=== PATIENT | male | born 1985 | race Caucasian/White ===

== ENCOUNTER 2017-07-09 11:15 | Emergency (ER) | payer MEDICARE, MEDICAID ==
[~2017-07-09] VITALS: Ht 154.9 cm; Wt 39.5 kg
[~2017-07-09 11:15] MED LIST: ACET160S GT; CARB15DR91 EACH EAR; CHOL100010 GT; CHOL2000 GT; CHOL400T32 PO; CLON-527 GT; CYAN10006 IM; CYAN100061 IM; FERR325T28 GT; FERR325T39 GT; HYDR-3686 PO; HYDR-569 GT; IMODIUM A-D GT; KETO15CR2 TP; LORA1TAB GT; LUBRIDERM LOTION; LUTE6CAP GT; LUTEIN GT; MAGN800O PO; METAMUCIL POWDER GT; OMEP10SU2 GT; OMEP20CA4 GT; POLY17PO10 PO; PROBIOTIC GT; RANI-327 GT; RANI150T8 GT; RISP1TAB3 GT; RISP1TAB47 GT; SIMETHICONE GT; VITAMIN C GT; VITC500T GT; ZINC OXIDE TOP; [UNRECOGNIZED DRUG - CODE] GT
[2017-07-09] MEDS ORDERED: normal saline 1000ML IV soln IV ONE (11:20)
[2017-07-09 11:54] LABS: BASOPHILS % (AUTO) 0.2 % (0-1); EOSINOPHILS # (AUTO) 0.1 X10'3 (0-0.9); EOSINOPHILS % (AUTO) 2.4 % (0-6); HEMATOCRIT 34.6 % (42.0-52.0); HEMOGLOBIN 11.6 g/dl (14.0-17.9); LYMPHOCYTES % (AUTO) 35.7 % (21-51); MEAN CORPUSCULAR HEMOGLOBIN 26.3 PG (27.0-31.0); MEAN CORPUSCULAR HGB CONC 33.5 % (33.0-36.5); MEAN CORPUSCULAR VOLUME 78.4 FL (78-98); MEAN PLATELET VOLUME 6.3 FL (7.4-10.4); MONOCYTES # (AUTO) 0.5 X10'3 (0-0.9); MONOCYTES % (AUTO) 9.3 % (2-12); NEUTROPHILS % (AUTO) 52.4 % (42-75); PLATELET COUNT 372 X10'3 (140-440); RED BLOOD COUNT 4.42 X10'6 (4.70-6.10); RED CELL DISTRIBUTION WIDTH 14.1 % (11.5-14.5); WHITE BLOOD COUNT 5.7 X10'3 (4.5-11.0)
[2017-07-09 12:03] LABS: PROTHROMBIN TIME 10.4 SECONDS (9.0-12.0)
[2017-07-09 12:10] LABS: ALANINE AMINOTRANSFERASE 16 U/L (12-78); ALBUMIN 2.6 G/DL (3.4-5.0); ALBUMIN/GLOBULIN RATIO 0.6 (1.1-1.5); ALKALINE PHOSPHATASE 42 IU/L (46-116); ANION GAP 9 (8-16); ASPARTATE AMINO TRANSFERASE 14 U/L (10-37); BILIRUBIN,TOTAL 0.4 MG/DL (0.1-1.0); BLOOD UREA NITROGEN 12 MG/DL (7-18); BUN/CREATININE RATIO 24.5 (5.4-32.0); CALCIUM 8.4 MG/DL (8.5-10.1); CHLORIDE 107 MMOL/L (99-107); CREATININE 0.49 MG/DL (0.60-1.10); GLUCOSE 89 MG/DL (70-104); MAGNESIUM 2.2 MG/DL (1.5-2.4); POTASSIUM 3.7 MMOL/L (3.5-5.1); SODIUM 142 MMOL/L (135-145); TOTAL PROTEIN 6.7 G/DL (6.4-8.2); eGFR > 90 ML/MIN
[2017-07-09] MEDS ORDERED: MUPI22OI30 TOP (12:42)
[2017-07-09] MEDS ORDERED: ALB0.5UD IH (12:42)
[2017-07-09 13:01] VITALS: BP 116/77
== END 2017-07-09 13:03 | disposition home or self-care (01) ==
LOC: ER 11:16
DX: J40 Bronchitis, not specified as acute or chronic (principal); L01.00 Impetigo, unspecified; Z93.1 Gastrostomy status; Z98.890 Other specified postprocedural states
CPT/HCPCS: 36415; 71045; 80053; 83735; 84145; 85025; 85610; 87502; 87503; 99285; J7030

== ENCOUNTER 2018-09-28 19:23 | Emergency (ER) | payer MEDICARE, MEDICAID ==
[~2018-09-28] VITALS: Ht 154.9 cm; Wt 50.0 kg
[~2018-09-28 19:23] MED LIST changes: +HYDR-4383 GT; -HYDR-569 GT
[2018-09-28 19:41] VITALS: BP 106/60
[2018-09-28] MEDS ORDERED: CIPR7.5D OT (20:40)
== END 2018-09-28 20:53 | disposition home or self-care (01) ==
LOC: ER 19:24
DX: H60.93 Unspecified otitis externa, bilateral (principal); Z88.8 Allergy status to other drugs, medicaments and biological substances
CPT/HCPCS: 99283

== ENCOUNTER 2018-12-28 12:31 | Emergency (ER) | payer MEDICARE, MEDICAID ==
[~2018-12-28] VITALS: Ht 144.8 cm; Wt 34.2 kg
[~2018-12-28 12:31] MED LIST changes: +CIPR7.5D OT
[2018-12-28 12:41] VITALS: BP 94/51
--- NOTE | 2018-12-28 12:49 | NUR ---
PATIENT PULLED OUT CHATO BARRETO G-TUBE AND WAS REINSERTED PER NURSE. SITE UNREMARKABLE. BALLOON INFLATED WITH 5 CC SALINE AND PATIENT TOLERATED PROCEDURE WELL.
== END 2018-12-28 12:55 | disposition home or self-care (01) ==
LOC: ER 12:32
DX: K94.23 Gastrostomy malfunction (principal); Z88.8 Allergy status to other drugs, medicaments and biological substances; Z79.2 Long term (current) use of antibiotics; Z79.899 Other long term (current) drug therapy; Z98.890 Other specified postprocedural states
CPT/HCPCS: 43762; 99283; 99284

== ENCOUNTER 2023-06-05 16:37 | Inpatient (IN) | payer MEDICARE, MEDICAID ==
[~2023-06-05] VITALS: Ht 152.4 cm; Wt 27.3 kg
[~2023-06-05 16:37] MED LIST changes: +MAGN24002 PO; -MAGN800O PO; +RISP-31 GT; -RISP1TAB3 GT
[2023-06-05 18:11] LABS: BASOPHILS % (AUTO) 0.2 % (0-1); EOSINOPHILS % (AUTO) 0.1 % (0-6); HEMATOCRIT 29.6 % (42.0-52.0); HEMOGLOBIN 9.6 g/dl (14.0-17.9); LYMPHOCYTES # (AUTO) 1.7 X10'3 (1.1-4.8); LYMPHOCYTES % (AUTO) 7.1 % (21-51); MEAN CORPUSCULAR HEMOGLOBIN 25.9 PG (27.0-31.0); MEAN CORPUSCULAR HGB CONC 32.3 g/dL (33.0-36.5); MEAN CORPUSCULAR VOLUME 80.2 FL (78-98); MEAN PLATELET VOLUME 7.3 FL (7.4-10.4); MONOCYTES # (AUTO) 1.3 X10'3 (0-0.9); MONOCYTES % (AUTO) 5.3 % (2-12); NEUTROPHILS # (AUTO) 20.9 X10'3 (1.8-7.7); NEUTROPHILS % (AUTO) 87.3 % (42-75); PLATELET COUNT 612 X10'3 (140-440); RED BLOOD COUNT 3.69 X10'6 (4.70-6.10); RED CELL DISTRIBUTION WIDTH 13.7 % (11.5-14.5); WHITE BLOOD COUNT 23.9 X10'3 (4.5-11.0)
[2023-06-05 18:19] LABS: ALANINE AMINOTRANSFERASE 58 U/L (12-78); ALBUMIN 1.7 G/DL (3.4-5.0); ALBUMIN/GLOBULIN RATIO 0.3 (1.1-1.5); ALKALINE PHOSPHATASE 156 IU/L (46-116); ANION GAP 10 (8-16); ASPARTATE AMINO TRANSFERASE 59 U/L (10-37); BILIRUBIN,TOTAL 0.4 MG/DL (0.1-1.0); BLOOD UREA NITROGEN 15 MG/DL (7-18); BUN/CREATININE RATIO 26.3 (10.0-20.0); CALCIUM 8.8 MG/DL (8.5-10.1); CHLORIDE 101 MMOL/L (99-107); CREATININE 0.57 MG/DL (0.60-1.10); GLUCOSE 127 MG/DL (70-104); MAGNESIUM 2.3 MG/DL (1.5-2.4); POTASSIUM 4.3 MMOL/L (3.5-5.1); SODIUM 138 MMOL/L (135-145); TOTAL CARBON DIOXIDE 27.5 MMOL/L (24-32); TOTAL PROTEIN 8.1 G/DL (6.4-8.2); eCRCL 74 ML/MIN; eGFR > 90 ML/MIN
[2023-06-05] MEDS ORDERED: CefTRIAXone 2gm/D5W 50ml BAG 50 ML IV ONE (21:25)
[2023-06-05] MEDS ORDERED: azithromycin/NS 500mg/250ml 250 ML IV ONE (21:40)
[2023-06-05] MEDS ORDERED: normal saline 1000ml 1,000 ML IV ONE (22:15)
[2023-06-05] MEDS ORDERED: mag hydrox/Alum hydrox/simeth 30ml oral suspension PO PRN (23:45)
[2023-06-05] MEDS ORDERED: magnesium 4gm in 100ml NS 100 ML IV PRN (23:45)
[2023-06-05] MEDS ORDERED: potassium Cl 40MEQ/1/2NS 520ml 520 ML IV PRN (23:45)
[2023-06-05] MEDS ORDERED: magnesium 2GM in 50ml NS 50 ML IV PRN (23:45)
[2023-06-05] MEDS ORDERED: magnesium hydroxide 30ml (MOM) UD suspension PO PRN (23:45)
[2023-06-06] MEDS ORDERED: vancomycin/NS 1 GM ADD-VANTAGE 250 ML X 1 DOSE IV ONE ×2 (00:10→00:25)
[2023-06-06] MEDS ORDERED: VANCOMYCIN 750MG IV in NS 250 ML IV ONE (00:30)
[2023-06-06] MEDS ORDERED: VANCOMYCIN TROUGH INJ ONE (01:00)
[2023-06-06] MEDS: docusate sod 100mg capsule PO SCH ×2 (08:00→20:00)
[2023-06-06] MEDS: K and/or MAG REPLACEMENT MC SCH ×2 (08:00→20:00)
[2023-06-06] MEDS ORDERED: azithromycin 250mg tablet PO SCH (08:20)
[2023-06-06] MEDS: normal saline 1000ml 1,000 ML IV SCH ×2 (08:22)
[2023-06-06 08:59] LABS: BASOPHILS % (AUTO) 0.1 % (0-1); EOSINOPHILS % (AUTO) 0 % (0-6); HEMATOCRIT 26.7 % (42.0-52.0); HEMOGLOBIN 8.5 g/dl (14.0-17.9); LYMPHOCYTES # (AUTO) 1.2 X10'3 (1.1-4.8); LYMPHOCYTES % (AUTO) 5.7 % (21-51); MEAN CORPUSCULAR HEMOGLOBIN 25.8 PG (27.0-31.0); MEAN CORPUSCULAR HGB CONC 31.6 g/dL (33.0-36.5); MEAN CORPUSCULAR VOLUME 81.6 FL (78-98); MEAN PLATELET VOLUME 7.4 FL (7.4-10.4); MONOCYTES # (AUTO) 1.4 X10'3 (0-0.9); MONOCYTES % (AUTO) 6.4 % (2-12); NEUTROPHILS % (AUTO) 87.8 % (42-75); PLATELET COUNT 529 X10'3 (140-440); RED BLOOD COUNT 3.28 X10'6 (4.70-6.10); RED CELL DISTRIBUTION WIDTH 13.6 % (11.5-14.5); WHITE BLOOD COUNT 21.7 X10'3 (4.5-11.0)
[2023-06-06] MEDS: heparin, porcine 5000 units/ml vial SQ SCH ×2 (09:35→21:46)
[2023-06-06 09:38] LABS: ALANINE AMINOTRANSFERASE 46 U/L (12-78); ALBUMIN 1.4 G/DL (3.4-5.0); ALBUMIN/GLOBULIN RATIO 0.3 (1.1-1.5); ALKALINE PHOSPHATASE 134 IU/L (46-116); ANION GAP 9 (8-16); BILIRUBIN,TOTAL 0.4 MG/DL (0.1-1.0); BLOOD UREA NITROGEN 11 MG/DL (7-18); BUN/CREATININE RATIO 26.2 (10.0-20.0); CALCIUM 8.4 MG/DL (8.5-10.1); CHLORIDE 106 MMOL/L (99-107); CREATININE 0.42 MG/DL (0.60-1.10); GLUCOSE 106 MG/DL (70-104); MAGNESIUM 2.4 MG/DL (1.5-2.4); SODIUM 140 MMOL/L (135-145); TOTAL CARBON DIOXIDE 24.6 MMOL/L (24-32); TOTAL PROTEIN 6.9 G/DL (6.4-8.2); eCRCL 101 ML/MIN; eGFR > 90 ML/MIN
[2023-06-06 09:41] LABS: ASPARTATE AMINO TRANSFERASE 45 U/L (10-37); POTASSIUM 4.9 MMOL/L (3.5-5.1)
[2023-06-06 09:49] LABS: PLATELET ESTIMATE INCREASED; TOTAL CELLS COUNTED 100
[2023-06-06 15:00] VITALS: BP 111/76; PULSE 101; RESP 18; RESP 19; TEMP 98.7; O2SAT 95; O2SAT 96
[2023-06-06] MEDS: vancomycin/NS 1 GM ADD-VANTAGE 250 ML IV SCH (15:42)
[2023-06-06] MEDS ORDERED: docusate sodium 100mg/10ml UD cup PO PRN (17:10)
[2023-06-06 18:00] VITALS: BP 117/72; PULSE 104; RESP 24; TEMP 98.4; O2SAT 96
[2023-06-06] MEDS: piperacillin/tazo 3.375gm/50ml 50 ML IV SCH (18:24)
[2023-06-06 20:00] VITALS: RESP 16; O2SAT 93
[2023-06-06] MEDS ORDERED: RISP-31 GT (20:36)
[2023-06-06] MEDS ORDERED: MELA1TAB28 GT (20:36)
[2023-06-06] MEDS ORDERED: FAMO20TA8 GT ×2 (20:36→22:04)
[2023-06-06] MEDS ORDERED: CLON-527 GT (20:36)
[2023-06-06] MEDS ORDERED: MELA3TAB70 GT (20:38)
[2023-06-06] MEDS ORDERED: saliva stimulant agent 45ml spray MM PRN (20:50)
[2023-06-06] MEDS ORDERED: CefTRIAXone/D5W-Rocephin 1gm 50 ML IV SCH (21:00)
[2023-06-06] MEDS: clonazePAM 1mg tablet PEG SCH ×2 (21:00→21:45)
[2023-06-06] MEDS: famotidine 20mg tablet PEG SCH (21:45)
[2023-06-06] MEDS: acetaminophen 325mg tablet PO PRN (21:45)
[2023-06-06] MEDS: risperiDONE 2mg tablet PO SCH (21:45)
[2023-06-06 22:00] VITALS: BP 114/79; PULSE 96; RESP 18; TEMP 97.6; O2SAT 93
[2023-06-06] MEDS ORDERED: LOPE1LIQ54 PO (22:04)
[2023-06-06] MEDS ORDERED: RISP0.5T74 GT (22:04)
[2023-06-06] MEDS ORDERED: LOPE1LIQ54 GT ×2 (22:04→22:43)
[2023-06-06] MEDS ORDERED: FER300L GT (22:04)
[2023-06-06] MEDS ORDERED: [UNRECOGNIZED DRUG - CODE] GT (22:04)
[2023-06-06] MEDS ORDERED: RISP2TAB97 GT (22:04)
[2023-06-06] MEDS ORDERED: DEXL30CA3 GT (22:04)
[2023-06-06] MEDS ORDERED: OLAN5TAB29 GT (22:04)
[2023-06-06] MEDS ORDERED: OLAN10TA21 GT (22:04)
[2023-06-06] MEDS ORDERED: L.AC300C GT (22:14)
[2023-06-06] MEDS ORDERED: CLON2TAB12 GT (22:14)
[2023-06-06] MEDS ORDERED: MELA3TAB39 GT (22:14)
[2023-06-06] MEDS ORDERED: CLON1TAB95 GT (22:14)
[2023-06-06] MEDS ORDERED: FLUO40CA10 GT (22:14)
[2023-06-06] MEDS ORDERED: HYDR50TA65 GT (22:28)
[2023-06-06] MEDS ORDERED: [UNRECOGNIZED DRUG - CODE] GT (22:42)
[2023-06-06] MEDS ORDERED: ACET325S14 GT ×2 (22:49→22:51)
[2023-06-07] VITALS (7 sets, daily range): BP systolic 98–109; BP diastolic 64–71; PULSE 90–108; RESP 14–20; TEMP 97.4–98.8; O2SAT 90–98
[2023-06-07] MEDS: piperacillin/tazo 3.375gm/50ml 50 ML IV SCH ×4 (01:13→23:39)
[2023-06-07] MEDS: vancomycin/NS 1 GM ADD-VANTAGE 250 ML IV SCH ×2 (03:03→15:13)
[2023-06-07 06:26] LABS: BASOPHILS % (AUTO) 0.1 % (0-1); EOSINOPHILS # (AUTO) 0.1 X10'3 (0-0.9); EOSINOPHILS % (AUTO) 0.3 % (0-6); HEMATOCRIT 24.1 % (42.0-52.0); HEMOGLOBIN 7.4 g/dl (14.0-17.9); LYMPHOCYTES # (AUTO) 1.4 X10'3 (1.1-4.8); LYMPHOCYTES % (AUTO) 7.1 % (21-51); MEAN CORPUSCULAR HEMOGLOBIN 25.1 PG (27.0-31.0); MEAN CORPUSCULAR HGB CONC 30.6 g/dL (33.0-36.5); MEAN CORPUSCULAR VOLUME 81.8 FL (78-98); MEAN PLATELET VOLUME 7.2 FL (7.4-10.4); MONOCYTES # (AUTO) 1.6 X10'3 (0-0.9); MONOCYTES % (AUTO) 8.2 % (2-12); NEUTROPHILS # (AUTO) 16.7 X10'3 (1.8-7.7); NEUTROPHILS % (AUTO) 84.3 % (42-75); PLATELET COUNT 492 X10'3 (140-440); RED BLOOD COUNT 2.94 X10'6 (4.70-6.10); RED CELL DISTRIBUTION WIDTH 13.8 % (11.5-14.5); WHITE BLOOD COUNT 19.9 X10'3 (4.5-11.0)
[2023-06-07 06:56] LABS: ALANINE AMINOTRANSFERASE 32 U/L (12-78); ALBUMIN 1.2 G/DL (3.4-5.0); ALBUMIN/GLOBULIN RATIO 0.3 (1.1-1.5); ALKALINE PHOSPHATASE 103 IU/L (46-116); ANION GAP 7 (8-16); ASPARTATE AMINO TRANSFERASE 19 U/L (10-37); BILIRUBIN,TOTAL 0.3 MG/DL (0.1-1.0); BLOOD UREA NITROGEN 9 MG/DL (7-18); BUN/CREATININE RATIO 18.4 (10.0-20.0); CALCIUM 7.8 MG/DL (8.5-10.1); CHLORIDE 102 MMOL/L (99-107); CREATININE 0.49 MG/DL (0.60-1.10); GLUCOSE 106 MG/DL (70-104); POTASSIUM 3.5 MMOL/L (3.5-5.1); SODIUM 135 MMOL/L (135-145); TOTAL CARBON DIOXIDE 25.9 MMOL/L (24-32); eCRCL 86 ML/MIN; eGFR > 90 ML/MIN
[2023-06-07] MEDS: normal saline 1000ml 1,000 ML IV SCH (07:30)
[2023-06-07] MEDS: docusate sod 100mg capsule PO SCH ×2 (08:00→20:00)
[2023-06-07] MEDS: K and/or MAG REPLACEMENT MC SCH ×2 (08:00→19:44)
[2023-06-07] MEDS: azithromycin/NS 500mg/250ml 250 ML IV SCH (08:42)
[2023-06-07] MEDS: famotidine 20mg tablet PEG SCH ×2 (08:43→21:29)
[2023-06-07] MEDS: heparin, porcine 5000 units/ml vial SQ SCH ×2 (08:43→21:30)
[2023-06-07] MEDS ORDERED: LIDOcaine 1% (10mg/ml) 2ml vial SQ ONE (14:25)
[2023-06-07] MEDS: morphine 2 MG/ML inj. syringe IV PRN (15:16)
[2023-06-07] MEDS: acetaminophen 325mg tablet PO PRN (15:23)
[2023-06-07] MEDS ORDERED: ACETAMINOPHEN 80 MG RC PRN (15:55)
[2023-06-07 16:16] LABS: BFSOURCE OTHER
[2023-06-07 16:25] LABS: ALBUMIN,BODY FLUID 1.1 G/DL; TOTAL PROTEIN,BODY FLUID 4.6 G/DL
[2023-06-07 17:12] LABS: LDH,BODY FLUID 33017 U/L
[2023-06-07 17:17] LABS: GLUCOSE,BODY FLUID 11 MG/DL
[2023-06-07] MEDS: risperiDONE 2mg tablet PO SCH (21:29)
[2023-06-07] MEDS: clonazePAM 1mg tablet PEG SCH (21:29)
[2023-06-08] VITALS (8 sets, daily range): BP systolic 108–122; BP diastolic 69–99; PULSE 84–95; RESP 15–22; TEMP 97–98.7; O2SAT 92–98
[2023-06-08] MEDS ORDERED: VANCOMYCIN LEVEL IV ONE (01:30)
[2023-06-08 02:03] LABS: BASOPHILS % (AUTO) 0.1 % (0-1); EOSINOPHILS # (AUTO) 0.1 X10'3 (0-0.9); EOSINOPHILS % (AUTO) 0.7 % (0-6); HEMATOCRIT 27.5 % (42.0-52.0); HEMOGLOBIN 8.7 g/dl (14.0-17.9); LYMPHOCYTES % (AUTO) 11.6 % (21-51); MEAN CORPUSCULAR HEMOGLOBIN 25.5 PG (27.0-31.0); MEAN CORPUSCULAR HGB CONC 31.7 g/dL (33.0-36.5); MEAN CORPUSCULAR VOLUME 80.4 FL (78-98); MEAN PLATELET VOLUME 6.9 FL (7.4-10.4); MONOCYTES # (AUTO) 1.6 X10'3 (0-0.9); NEUTROPHILS # (AUTO) 13.9 X10'3 (1.8-7.7); NEUTROPHILS % (AUTO) 78.6 % (42-75); PLATELET COUNT 533 X10'3 (140-440); RED BLOOD COUNT 3.42 X10'6 (4.70-6.10); RED CELL DISTRIBUTION WIDTH 13.8 % (11.5-14.5); WHITE BLOOD COUNT 17.7 X10'3 (4.5-11.0)
[2023-06-08] MEDS: vancomycin/NS 1 GM ADD-VANTAGE 250 ML IV SCH (02:14)
[2023-06-08 02:22] LABS: ALANINE AMINOTRANSFERASE 27 U/L (12-78); ALBUMIN 1.2 G/DL (3.4-5.0); ALBUMIN/GLOBULIN RATIO 0.2 (1.1-1.5); ALKALINE PHOSPHATASE 103 IU/L (46-116); ANION GAP 5 (8-16); ASPARTATE AMINO TRANSFERASE 24 U/L (10-37); BILIRUBIN,TOTAL 0.3 MG/DL (0.1-1.0); BLOOD UREA NITROGEN 8 MG/DL (7-18); BUN/CREATININE RATIO 14.8 (10.0-20.0); CALCIUM 7.9 MG/DL (8.5-10.1); CHLORIDE 99 MMOL/L (99-107); CREATININE 0.54 MG/DL (0.60-1.10); GLUCOSE 111 MG/DL (70-104); MAGNESIUM 1.9 MG/DL (1.5-2.4); POTASSIUM 3.6 MMOL/L (3.5-5.1); SODIUM 134 MMOL/L (135-145); TOTAL CARBON DIOXIDE 29.9 MMOL/L (24-32); TOTAL PROTEIN 6.1 G/DL (6.4-8.2); VANCOMYCIN,TROUGH 9.8 ug/mL (10.0-20.0); eCRCL 94 ML/MIN; eGFR > 90 ML/MIN
[2023-06-08] MEDS: normal saline 1000ml 1,000 ML IV SCH ×2 (03:30→14:52)
[2023-06-08] MEDS: morphine 2 MG/ML inj. syringe IV PRN ×3 (05:03→14:50)
[2023-06-08] MEDS: azithromycin/NS 500mg/250ml 250 ML IV SCH (07:59)
[2023-06-08] MEDS: famotidine 20mg tablet PEG SCH ×2 (07:59→22:16)
[2023-06-08] MEDS: piperacillin/tazo 3.375gm/50ml 50 ML IV SCH ×2 (07:59→16:29)
[2023-06-08] MEDS: heparin, porcine 5000 units/ml vial SQ SCH ×2 (07:59→22:18)
[2023-06-08] MEDS: K and/or MAG REPLACEMENT MC SCH ×2 (08:00→20:00)
[2023-06-08] MEDS: docusate sod 100mg capsule PO SCH ×2 (08:00→20:00)
[2023-06-08] MEDS ORDERED: VANCOMYCIN 750MG IV in NS 250 ML IV SCH (10:00)
[2023-06-08] MEDS: clonazePAM 1mg tablet PEG SCH (22:16)
[2023-06-08] MEDS: risperiDONE 2mg tablet PO SCH (22:16)
[2023-06-08] MEDS: albuterol 2.5 MG/3 ML nebule NEB PRN (23:08)
[2023-06-09] VITALS (10 sets, daily range): BP systolic 98–126; BP diastolic 64–83; PULSE 85–102; RESP 16–23; TEMP 97–98.4; O2SAT 93–97
[2023-06-09] MEDS: piperacillin/tazo 3.375gm/50ml 50 ML IV SCH ×4 (00:34→23:56)
[2023-06-09 07:24] LABS: BASOPHILS % (AUTO) 0.1 % (0-1); EOSINOPHILS # (AUTO) 0.1 X10'3 (0-0.9); HEMATOCRIT 27.8 % (42.0-52.0); HEMOGLOBIN 8.7 g/dl (14.0-17.9); LYMPHOCYTES # (AUTO) 2.1 X10'3 (1.1-4.8); LYMPHOCYTES % (AUTO) 15.4 % (21-51); MEAN CORPUSCULAR HEMOGLOBIN 25.5 PG (27.0-31.0); MEAN CORPUSCULAR HGB CONC 31.3 g/dL (33.0-36.5); MEAN CORPUSCULAR VOLUME 81.4 FL (78-98); MEAN PLATELET VOLUME 7.2 FL (7.4-10.4); MONOCYTES # (AUTO) 1.1 X10'3 (0-0.9); MONOCYTES % (AUTO) 8.2 % (2-12); NEUTROPHILS # (AUTO) 10.2 X10'3 (1.8-7.7); NEUTROPHILS % (AUTO) 75.3 % (42-75); PLATELET COUNT 654 X10'3 (140-440); RED BLOOD COUNT 3.42 X10'6 (4.70-6.10); WHITE BLOOD COUNT 13.6 X10'3 (4.5-11.0)
[2023-06-09 07:35] LABS: ALANINE AMINOTRANSFERASE 24 U/L (12-78); ALBUMIN 1.3 G/DL (3.4-5.0); ALBUMIN/GLOBULIN RATIO 0.3 (1.1-1.5); ALKALINE PHOSPHATASE 108 IU/L (46-116); ANION GAP 6 (8-16); ASPARTATE AMINO TRANSFERASE 28 U/L (10-37); BILIRUBIN,TOTAL 0.3 MG/DL (0.1-1.0); BLOOD UREA NITROGEN 8 MG/DL (7-18); BUN/CREATININE RATIO 18.6 (10.0-20.0); CALCIUM 8.2 MG/DL (8.5-10.1); CHLORIDE 102 MMOL/L (99-107); CREATININE 0.43 MG/DL (0.60-1.10); GLUCOSE 102 MG/DL (70-104); MAGNESIUM 2.2 MG/DL (1.5-2.4); POTASSIUM 4.2 MMOL/L (3.5-5.1); PREALBUMIN 11.9 MG/DL (19-36); SODIUM 136 MMOL/L (135-145); TOTAL CARBON DIOXIDE 27.8 MMOL/L (24-32); TOTAL PROTEIN 6.4 G/DL (6.4-8.2); eCRCL 122 ML/MIN; eGFR > 90 ML/MIN
[2023-06-09] MEDS: K and/or MAG REPLACEMENT MC SCH ×2 (08:00→20:00)
[2023-06-09] MEDS: docusate sod 100mg capsule PO SCH ×2 (08:00→20:00)
[2023-06-09 08:12] LABS: ELLIPTOCYTES FEW; PLATELET ESTIMATE INCREASED; POLYCHROMASIA FEW; TEAR DROP CELLS FEW
[2023-06-09] MEDS: heparin, porcine 5000 units/ml vial SQ SCH ×2 (08:51→22:04)
[2023-06-09] MEDS: azithromycin/NS 500mg/250ml 250 ML IV SCH (08:51)
[2023-06-09] MEDS: famotidine 20mg tablet PEG SCH ×2 (08:51→22:04)
[2023-06-09] MEDS ORDERED: VANCOMYCIN LEVEL IV ONE (09:30)
[2023-06-09] MEDS: morphine 2 MG/ML inj. syringe IV PRN ×2 (15:45→22:24)
[2023-06-09] MEDS: normal saline 1000ml 1,000 ML IV SCH ×2 (19:30→23:57)
[2023-06-09] MEDS: albuterol 2.5 MG/3 ML nebule NEB PRN (21:26)
[2023-06-09] MEDS: risperiDONE 2mg tablet PO SCH (22:01)
[2023-06-09] MEDS: clonazePAM 1mg tablet PEG SCH (22:02)
[2023-06-10] VITALS (7 sets, daily range): BP systolic 86–106; BP diastolic 55–69; PULSE 80–94; RESP 16–22; TEMP 97–98.2; O2SAT 92–96
[2023-06-10] MEDS: morphine 2 MG/ML inj. syringe IV PRN ×2 (02:45→10:08)
[2023-06-10 06:28] LABS: EOSINOPHILS # (AUTO) 0.3 X10'3 (0-0.9); EOSINOPHILS % (AUTO) 2.1 % (0-6); HEMOGLOBIN 9.1 g/dl (14.0-17.9); LYMPHOCYTES # (AUTO) 1.5 X10'3 (1.1-4.8); MONOCYTES # (AUTO) 1.1 X10'3 (0-0.9); NEUTROPHILS # (AUTO) 10.7 X10'3 (1.8-7.7); WHITE BLOOD COUNT 13.6 X10'3 (4.5-11.0)
[2023-06-10 06:30] LABS: BASOPHILS % (AUTO) 0.2 % (0-1); HEMATOCRIT 28.9 % (42.0-52.0); LYMPHOCYTES % (AUTO) 10.9 % (21-51); MEAN CORPUSCULAR HEMOGLOBIN 25.7 PG (27.0-31.0); MEAN CORPUSCULAR HGB CONC 31.6 g/dL (33.0-36.5); MEAN CORPUSCULAR VOLUME 81.3 FL (78-98); MEAN PLATELET VOLUME 7.1 FL (7.4-10.4); NEUTROPHILS % (AUTO) 78.8 % (42-75); PLATELET COUNT 722 X10'3 (140-440); RED BLOOD COUNT 3.55 X10'6 (4.70-6.10); RED CELL DISTRIBUTION WIDTH 14.2 % (11.5-14.5)
[2023-06-10 06:32] LABS: ALANINE AMINOTRANSFERASE 23 U/L (12-78); ALBUMIN 1.6 G/DL (3.4-5.0); ALBUMIN/GLOBULIN RATIO 0.3 (1.1-1.5); ALKALINE PHOSPHATASE 124 IU/L (46-116); ANION GAP 7 (8-16); ASPARTATE AMINO TRANSFERASE 30 U/L (10-37); BILIRUBIN,TOTAL 0.2 MG/DL (0.1-1.0); BLOOD UREA NITROGEN 9 MG/DL (7-18); BUN/CREATININE RATIO 17.3 (10.0-20.0); CALCIUM 8.5 MG/DL (8.5-10.1); CHLORIDE 100 MMOL/L (99-107); CREATININE 0.52 MG/DL (0.60-1.10); GLUCOSE 123 MG/DL (70-104); POTASSIUM 4.1 MMOL/L (3.5-5.1); SODIUM 133 MMOL/L (135-145); TOTAL CARBON DIOXIDE 26.5 MMOL/L (24-32); TOTAL PROTEIN 6.9 G/DL (6.4-8.2); eCRCL 88 ML/MIN; eGFR > 90 ML/MIN
[2023-06-10 07:17] LABS: LARGE PLATELETS FEW; PLATELET ESTIMATE INCREASED; TOTAL CELLS COUNTED 100
[2023-06-10 07:18] LABS: POLYCHROMASIA FEW; TEAR DROP CELLS FEW
[2023-06-10] MEDS: docusate sod 100mg capsule PO SCH ×2 (08:00→20:00)
[2023-06-10] MEDS: piperacillin/tazo 3.375gm/50ml 50 ML IV SCH ×3 (09:51→23:40)
[2023-06-10] MEDS: K and/or MAG REPLACEMENT MC SCH ×2 (10:00→20:00)
[2023-06-10] MEDS: famotidine 20mg tablet PEG SCH ×2 (10:21→20:06)
[2023-06-10] MEDS: heparin, porcine 5000 units/ml vial SQ SCH ×2 (10:26→20:06)
[2023-06-10] MEDS ORDERED: diatr meglu/diatrizoate 30ml oral sol.-(3 dose) bottle PO SCH (15:00)
[2023-06-10] MEDS: clonazePAM 1mg tablet PEG SCH (20:06)
[2023-06-10] MEDS: risperiDONE 2mg tablet PO SCH (20:06)
[2023-06-11] VITALS (7 sets, daily range): BP systolic 88–106; BP diastolic 59–68; PULSE 84–104; RESP 18–21; TEMP 97.3–98.9; O2SAT 93–96
[2023-06-11] MEDS: morphine 2 MG/ML inj. syringe IV PRN (01:30)
[2023-06-11] MEDS: piperacillin/tazo 3.375gm/50ml 50 ML IV SCH ×2 (08:00→18:37)
[2023-06-11] MEDS: K and/or MAG REPLACEMENT MC SCH ×2 (08:00→20:00)
[2023-06-11] MEDS: docusate sod 100mg capsule PO SCH ×2 (08:00→20:13)
[2023-06-11] MEDS: famotidine 20mg tablet PEG SCH ×2 (08:00→20:12)
[2023-06-11] MEDS: heparin, porcine 5000 units/ml vial SQ SCH ×2 (08:02→20:13)
[2023-06-11] MEDS: clonazePAM 1mg tablet PEG SCH (20:12)
[2023-06-11] MEDS: risperiDONE 2mg tablet PO SCH (20:12)
[2023-06-12] VITALS (8 sets, daily range): BP systolic 87–98; BP diastolic 51–59; PULSE 79–103; RESP 14–18; TEMP 97.3–98.8; O2SAT 14–96
[2023-06-12] MEDS: piperacillin/tazo 3.375gm/50ml 50 ML IV SCH ×3 (01:00→15:27)
[2023-06-12] MEDS: morphine 2 MG/ML inj. syringe IV PRN (01:47)
[2023-06-12 06:19] LABS: BASOPHILS % (AUTO) 0.2 % (0-1); EOSINOPHILS # (AUTO) 0.3 X10'3 (0-0.9); EOSINOPHILS % (AUTO) 2.5 % (0-6); HEMATOCRIT 32.2 % (42.0-52.0); HEMOGLOBIN 10.4 g/dl (14.0-17.9); LYMPHOCYTES # (AUTO) 1.8 X10'3 (1.1-4.8); LYMPHOCYTES % (AUTO) 15.2 % (21-51); MEAN CORPUSCULAR HEMOGLOBIN 26.2 PG (27.0-31.0); MEAN CORPUSCULAR HGB CONC 32.2 g/dL (33.0-36.5); MEAN CORPUSCULAR VOLUME 81.5 FL (78-98); MEAN PLATELET VOLUME 6.8 FL (7.4-10.4); MONOCYTES # (AUTO) 0.8 X10'3 (0-0.9); MONOCYTES % (AUTO) 6.3 % (2-12); NEUTROPHILS # (AUTO) 9.1 X10'3 (1.8-7.7); NEUTROPHILS % (AUTO) 75.8 % (42-75); PLATELET COUNT 771 X10'3 (140-440); RED BLOOD COUNT 3.95 X10'6 (4.70-6.10); RED CELL DISTRIBUTION WIDTH 14.3 % (11.5-14.5)
[2023-06-12 06:51] LABS: PLATELET ESTIMATE INCREASED; TOTAL CELLS COUNTED 100
[2023-06-12 06:53] LABS: HYPOCHROMASIA 1+; POLYCHROMASIA FEW
[2023-06-12 06:54] LABS: ALBUMIN 2.1 G/DL (3.4-5.0); ANION GAP 8 (8-16); BLOOD UREA NITROGEN 17 MG/DL (7-18); BUN/CREATININE RATIO 37.8 (10.0-20.0); CALCIUM 8.9 MG/DL (8.5-10.1); CHLORIDE 98 MMOL/L (99-107); CREATININE 0.45 MG/DL (0.60-1.10); GLUCOSE 114 MG/DL (70-104); PHOSPHORUS 4.1 MG/DL (2.3-4.5); POTASSIUM 4.3 MMOL/L (3.5-5.1); SODIUM 133 MMOL/L (135-145); TEAR DROP CELLS FEW; TOTAL CARBON DIOXIDE 27.1 MMOL/L (24-32); eCRCL 99 ML/MIN; eGFR > 90 ML/MIN
[2023-06-12 06:55] LABS: LARGE PLATELETS FEW; STOMATOCYTES FEW
[2023-06-12] MEDS: famotidine 20mg tablet PEG SCH ×2 (07:31→20:15)
[2023-06-12] MEDS: heparin, porcine 5000 units/ml vial SQ SCH ×2 (07:31→20:17)
[2023-06-12] MEDS: docusate sod 100mg capsule PO SCH ×2 (07:37→20:18)
[2023-06-12] MEDS: K and/or MAG REPLACEMENT MC SCH ×2 (08:00→20:00)
[2023-06-12] MEDS: risperiDONE 2mg tablet PO SCH (20:15)
[2023-06-12] MEDS: clonazePAM 1mg tablet PEG SCH (20:17)
[2023-06-13] MEDS: piperacillin/tazo 3.375gm/50ml 50 ML IV SCH ×3 (00:48→16:39)
[2023-06-13 06:00] VITALS: BP 105/78; PULSE 94; RESP 14; TEMP 97.5; O2SAT 98
[2023-06-13 08:00] VITALS: RESP 14; O2SAT 92
[2023-06-13] MEDS: K and/or MAG REPLACEMENT MC SCH ×2 (08:00→20:00)
[2023-06-13] MEDS: heparin, porcine 5000 units/ml vial SQ SCH ×2 (08:20→20:56)
[2023-06-13] MEDS: docusate sod 100mg capsule PO SCH (08:21)
[2023-06-13] MEDS: famotidine 20mg tablet PEG SCH ×2 (08:21→20:59)
[2023-06-13 09:48] LABS: BASOPHILS % (AUTO) 0.2 % (0-1); EOSINOPHILS # (AUTO) 0.2 X10'3 (0-0.9); EOSINOPHILS % (AUTO) 1.5 % (0-6); HEMATOCRIT 36.1 % (42.0-52.0); HEMOGLOBIN 11.2 g/dl (14.0-17.9); LYMPHOCYTES # (AUTO) 2.2 X10'3 (1.1-4.8); LYMPHOCYTES % (AUTO) 13.4 % (21-51); MEAN CORPUSCULAR HEMOGLOBIN 26.1 PG (27.0-31.0); MEAN CORPUSCULAR HGB CONC 31.1 g/dL (33.0-36.5); MEAN CORPUSCULAR VOLUME 83.8 FL (78-98); MEAN PLATELET VOLUME 6.7 FL (7.4-10.4); MONOCYTES % (AUTO) 5.9 % (2-12); NEUTROPHILS # (AUTO) 12.9 X10'3 (1.8-7.7); PLATELET COUNT 812 X10'3 (140-440); RED BLOOD COUNT 4.31 X10'6 (4.70-6.10); RED CELL DISTRIBUTION WIDTH 15.1 % (11.5-14.5); WHITE BLOOD COUNT 16.3 X10'3 (4.5-11.0)
[2023-06-13 10:00] VITALS: BP 104/71; PULSE 85; RESP 14; TEMP 97.8; O2SAT 92
[2023-06-13 10:05] LABS: ALBUMIN 2.3 G/DL (3.4-5.0); ANION GAP 8 (8-16); BLOOD UREA NITROGEN 19 MG/DL (7-18); BUN/CREATININE RATIO 36.5 (10.0-20.0); CALCIUM 9.2 MG/DL (8.5-10.1); CHLORIDE 100 MMOL/L (99-107); CREATININE 0.52 MG/DL (0.60-1.10); GLUCOSE 124 MG/DL (70-104); PHOSPHORUS 4.2 MG/DL (2.3-4.5); POTASSIUM 3.8 MMOL/L (3.5-5.1); SODIUM 136 MMOL/L (135-145); TOTAL CARBON DIOXIDE 28.4 MMOL/L (24-32); eCRCL 82 ML/MIN; eGFR > 90 ML/MIN
[2023-06-13 11:51] VITALS: PULSE 90; RESP 20; O2SAT 97
[2023-06-13] MEDS ORDERED: docusate sodium 100mg/10ml UD cup PEG PRN (16:56)
[2023-06-13] MEDS ORDERED: acetaminophen 325mg tablet PEG PRN (16:56)
[2023-06-13] MEDS ORDERED: magnesium hydroxide 30ml (MOM) UD suspension PEG PRN (16:57)
[2023-06-13 20:00] VITALS: RESP 14; O2SAT 92
[2023-06-13] MEDS: clonazePAM 1mg tablet PEG SCH (20:59)
[2023-06-13] MEDS: risperiDONE 2mg tablet PEG SCH (21:00)
[2023-06-13 21:50] VITALS: PULSE 83; RESP 16; O2SAT 97
[2023-06-14] VITALS (8 sets, daily range): BP systolic 95–118; BP diastolic 64–82; PULSE 81–100; RESP 14–24; TEMP 96.1–98.3; O2SAT 92–97
[2023-06-14] MEDS: piperacillin/tazo 3.375gm/50ml 50 ML IV SCH ×3 (01:51→16:13)
[2023-06-14] MEDS: morphine 2 MG/ML inj. syringe IV PRN (03:28)
[2023-06-14 05:33] LABS: BASOPHILS % (AUTO) 0.1 % (0-1); EOSINOPHILS # (AUTO) 0.2 X10'3 (0-0.9); MEAN PLATELET VOLUME 6.7 FL (7.4-10.4); RED BLOOD COUNT 4.08 X10'6 (4.70-6.10)
[2023-06-14 05:34] LABS: EOSINOPHILS % (AUTO) 1.8 % (0-6); HEMATOCRIT 33.6 % (42.0-52.0); HEMOGLOBIN 10.7 g/dl (14.0-17.9); LYMPHOCYTES # (AUTO) 1.6 X10'3 (1.1-4.8); MEAN CORPUSCULAR HEMOGLOBIN 26.2 PG (27.0-31.0); MEAN CORPUSCULAR HGB CONC 31.8 g/dL (33.0-36.5); MEAN CORPUSCULAR VOLUME 82.5 FL (78-98); MONOCYTES # (AUTO) 0.8 X10'3 (0-0.9); MONOCYTES % (AUTO) 5.8 % (2-12); NEUTROPHILS # (AUTO) 10.8 X10'3 (1.8-7.7); NEUTROPHILS % (AUTO) 80.3 % (42-75); PLATELET COUNT 691 X10'3 (140-440); RED CELL DISTRIBUTION WIDTH 14.9 % (11.5-14.5); WHITE BLOOD COUNT 13.4 X10'3 (4.5-11.0)
[2023-06-14 05:55] LABS: ALBUMIN 2.3 G/DL (3.4-5.0); ANION GAP 9 (8-16); BLOOD UREA NITROGEN 20 MG/DL (7-18); BUN/CREATININE RATIO 33.9 (10.0-20.0); CALCIUM 9.2 MG/DL (8.5-10.1); CHLORIDE 99 MMOL/L (99-107); CREATININE 0.59 MG/DL (0.60-1.10); GLUCOSE 115 MG/DL (70-104); PHOSPHORUS 4.4 MG/DL (2.3-4.5); POTASSIUM 4.2 MMOL/L (3.5-5.1); SODIUM 133 MMOL/L (135-145); TOTAL CARBON DIOXIDE 25.4 MMOL/L (24-32); eCRCL 74 ML/MIN; eGFR > 90 ML/MIN
[2023-06-14] MEDS: famotidine 20mg tablet PEG SCH ×2 (08:21→22:24)
[2023-06-14] MEDS: heparin, porcine 5000 units/ml vial SQ SCH ×2 (08:21→22:23)
[2023-06-14] MEDS: K and/or MAG REPLACEMENT MC SCH ×2 (08:50→20:00)
[2023-06-14] MEDS: clonazePAM 1mg tablet PEG SCH (22:24)
[2023-06-14] MEDS: risperiDONE 2mg tablet PEG SCH (22:24)
[2023-06-15] VITALS (8 sets, daily range): BP systolic 96–102; BP diastolic 51–66; PULSE 65–87; RESP 13–16; TEMP 97.6–98.5; O2SAT 96–98
[2023-06-15] MEDS: piperacillin/tazo 3.375gm/50ml 50 ML IV SCH ×3 (00:54→19:25)
[2023-06-15 06:50] LABS: MEAN PLATELET VOLUME 6.8 FL (7.4-10.4); MONOCYTES # (AUTO) 0.8 X10'3 (0-0.9)
[2023-06-15 06:53] LABS: BASOPHILS % (AUTO) 0.3 % (0-1); EOSINOPHILS # (AUTO) 0.2 X10'3 (0-0.9); EOSINOPHILS % (AUTO) 2.1 % (0-6); HEMOGLOBIN 11.1 g/dl (14.0-17.9); LYMPHOCYTES # (AUTO) 1.9 X10'3 (1.1-4.8); LYMPHOCYTES % (AUTO) 16.3 % (21-51); MEAN CORPUSCULAR HEMOGLOBIN 26.8 PG (27.0-31.0); MEAN CORPUSCULAR HGB CONC 32.5 g/dL (33.0-36.5); MEAN CORPUSCULAR VOLUME 82.4 FL (78-98); MONOCYTES % (AUTO) 6.6 % (2-12); NEUTROPHILS # (AUTO) 8.5 X10'3 (1.8-7.7); NEUTROPHILS % (AUTO) 74.7 % (42-75); PLATELET COUNT 633 X10'3 (140-440); RED BLOOD COUNT 4.13 X10'6 (4.70-6.10); RED CELL DISTRIBUTION WIDTH 15.1 % (11.5-14.5); WHITE BLOOD COUNT 11.4 X10'3 (4.5-11.0)
[2023-06-15 07:16] LABS: ALBUMIN 2.5 G/DL (3.4-5.0); ANION GAP 11 (8-16); BLOOD UREA NITROGEN 20 MG/DL (7-18); BUN/CREATININE RATIO 42.6 (10.0-20.0); CHLORIDE 99 MMOL/L (99-107); CREATININE 0.47 MG/DL (0.60-1.10); GLUCOSE 116 MG/DL (70-104); PHOSPHORUS 4.7 MG/DL (2.3-4.5); POTASSIUM 3.8 MMOL/L (3.5-5.1); SODIUM 136 MMOL/L (135-145); TOTAL CARBON DIOXIDE 26.2 MMOL/L (24-32); eCRCL 93 ML/MIN; eGFR > 90 ML/MIN
[2023-06-15] MEDS: K and/or MAG REPLACEMENT MC SCH ×2 (08:00→20:00)
[2023-06-15] MEDS: famotidine 20mg tablet PEG SCH ×2 (10:27→21:55)
[2023-06-15] MEDS: heparin, porcine 5000 units/ml vial SQ SCH ×2 (10:28→21:54)
[2023-06-15] MEDS: risperiDONE 2mg tablet PEG SCH (21:00)
[2023-06-15] MEDS: clonazePAM 1mg tablet PEG SCH (21:00)
[2023-06-15 21:11] LABS: ABG BASE EXCESS 2.4 mmol/L (-2.0-2.0); ABG HCO3 27.5 mmol/L (22.0-26.0); ABG OXYGEN SATURATION 94.7 % (94-97); ABG PCO2 (T) 43.2 mmHg (35.0-48.0); ABG PH (T) 7.419 (7.340-7.440); ABG PO2 (T) 76.4 mmHg (75.0-100.0); ALLEN'S TEST Modified; FCOHb 1.4 % (0.0-3.9); FHHb 5.2 % (0.0-5.0); FMetHb 0.2 % (0.0-1.5); FO2Hb 93.2 % (94-97); MODE ROOM AIR; PATIENT TEMPERATURE 36.2; RESPIRATORY RATE 14 b/min; TOTAL HEMOGLOBIN 11.1 G/dl (14.0-17.9)
[2023-06-15] MEDS ORDERED: LidoCAINE 2% Topical Jelly 11mL syringe TOP ONE (21:15)
[2023-06-15] MEDS ORDERED: ringers solution, lacted 1,000 ML IV ONE (21:20)
[2023-06-16] VITALS (7 sets, daily range): BP systolic 90–98; BP diastolic 56–67; PULSE 75–84; RESP 13–18; TEMP 97.2–97.8; O2SAT 93–99
[2023-06-16] MEDS: piperacillin/tazo 3.375gm/50ml 50 ML IV SCH ×3 (00:50→16:48)
[2023-06-16 06:44] LABS: EOSINOPHILS # (AUTO) 0.3 X10'3 (0-0.9); LYMPHOCYTES # (AUTO) 1.6 X10'3 (1.1-4.8)
[2023-06-16 06:47] LABS: BASOPHILS % (AUTO) 0.4 % (0-1); EOSINOPHILS % (AUTO) 2.3 % (0-6); HEMATOCRIT 34.8 % (42.0-52.0); HEMOGLOBIN 11.3 g/dl (14.0-17.9); LYMPHOCYTES % (AUTO) 15.1 % (21-51); MEAN CORPUSCULAR HGB CONC 32.5 g/dL (33.0-36.5); MEAN CORPUSCULAR VOLUME 83.1 FL (78-98); MONOCYTES # (AUTO) 0.8 X10'3 (0-0.9); MONOCYTES % (AUTO) 7.5 % (2-12); NEUTROPHILS # (AUTO) 8.1 X10'3 (1.8-7.7); NEUTROPHILS % (AUTO) 74.7 % (42-75); PLATELET COUNT 598 X10'3 (140-440); RED BLOOD COUNT 4.19 X10'6 (4.70-6.10); WHITE BLOOD COUNT 10.9 X10'3 (4.5-11.0)
[2023-06-16 06:55] LABS: ALBUMIN 2.5 G/DL (3.4-5.0); ANION GAP 8 (8-16); BLOOD UREA NITROGEN 24 MG/DL (7-18); BUN/CREATININE RATIO 46.2 (10.0-20.0); CALCIUM 9.3 MG/DL (8.5-10.1); CHLORIDE 99 MMOL/L (99-107); CREATININE 0.52 MG/DL (0.60-1.10); GLUCOSE 113 MG/DL (70-104); PHOSPHORUS 4.6 MG/DL (2.3-4.5); SODIUM 134 MMOL/L (135-145); TOTAL CARBON DIOXIDE 27.1 MMOL/L (24-32); eCRCL 84 ML/MIN; eGFR > 90 ML/MIN
[2023-06-16] MEDS: famotidine 20mg tablet PEG SCH ×2 (07:47→21:06)
[2023-06-16] MEDS: K and/or MAG REPLACEMENT MC SCH ×2 (08:00→20:00)
[2023-06-16] MEDS: heparin, porcine 5000 units/ml vial SQ SCH ×2 (08:00→21:07)
[2023-06-16] MEDS: clonazePAM 1mg tablet PEG SCH (21:06)
[2023-06-16] MEDS: risperiDONE 2mg tablet PEG SCH (21:06)
[2023-06-17] MEDS: piperacillin/tazo 3.375gm/50ml 50 ML IV SCH ×3 (00:56→17:30)
[2023-06-17 06:00] VITALS: BP 84/55; PULSE 68; RESP 14; TEMP 97.9; O2SAT 96
[2023-06-17] MEDS: K and/or MAG REPLACEMENT MC SCH ×2 (08:00→20:00)
[2023-06-17] MEDS: famotidine 20mg tablet PEG SCH ×2 (08:00→20:12)
[2023-06-17 08:19] VITALS: PULSE 83; RESP 18; O2SAT 94
[2023-06-17 10:15] LABS: ALANINE AMINOTRANSFERASE 17 U/L (12-78); ALBUMIN 2.7 G/DL (3.4-5.0); ALBUMIN/GLOBULIN RATIO 0.4 (1.1-1.5); ALKALINE PHOSPHATASE 86 IU/L (46-116); ANION GAP 12 (8-16); ASPARTATE AMINO TRANSFERASE 18 U/L (10-37); BILIRUBIN,TOTAL 0.2 MG/DL (0.1-1.0); BLOOD UREA NITROGEN 27 MG/DL (7-18); CALCIUM 9.6 MG/DL (8.5-10.1); CHLORIDE 98 MMOL/L (99-107); GLUCOSE 96 MG/DL (70-104); POTASSIUM 4.2 MMOL/L (3.5-5.1); SODIUM 134 MMOL/L (135-145); TOTAL CARBON DIOXIDE 23.6 MMOL/L (24-32); TOTAL PROTEIN 8.9 G/DL (6.4-8.2); eCRCL 93 ML/MIN; eGFR > 90 ML/MIN
[2023-06-17 10:18] LABS: BASOPHILS # (AUTO) 0.1 X10'3 (0-0.2); BASOPHILS % (AUTO) 0.6 % (0-1); EOSINOPHILS # (AUTO) 0.2 X10'3 (0-0.9); EOSINOPHILS % (AUTO) 1.9 % (0-6); HEMATOCRIT 39.7 % (42.0-52.0); HEMOGLOBIN 12.4 g/dl (14.0-17.9); LYMPHOCYTES # (AUTO) 1.7 X10'3 (1.1-4.8); LYMPHOCYTES % (AUTO) 18.8 % (21-51); MEAN CORPUSCULAR HEMOGLOBIN 26.2 PG (27.0-31.0); MEAN CORPUSCULAR HGB CONC 31.1 g/dL (33.0-36.5); MEAN CORPUSCULAR VOLUME 84.1 FL (78-98); MONOCYTES # (AUTO) 0.6 X10'3 (0-0.9); MONOCYTES % (AUTO) 6.8 % (2-12); NEUTROPHILS # (AUTO) 6.6 X10'3 (1.8-7.7); NEUTROPHILS % (AUTO) 71.9 % (42-75); PLATELET COUNT 559 X10'3 (140-440); RED BLOOD COUNT 4.72 X10'6 (4.70-6.10); RED CELL DISTRIBUTION WIDTH 16.2 % (11.5-14.5); WHITE BLOOD COUNT 9.2 X10'3 (4.5-11.0)
[2023-06-17 11:10] VITALS: BP 93/63; PULSE 91; RESP 20; TEMP 97.3; O2SAT 90
[2023-06-17] MEDS: ondansetron/PF 4mg/2ml inj IV PRN (11:19)
[2023-06-17] MEDS: heparin, porcine 5000 units/ml vial SQ SCH ×2 (11:20→20:12)
[2023-06-17 18:00] VITALS: BP 96/67; PULSE 85; RESP 20; TEMP 97.5; O2SAT 95
[2023-06-17 20:12] VITALS: PULSE 88; RESP 18; O2SAT 93
[2023-06-17] MEDS: clonazePAM 1mg tablet PEG SCH (20:12)
[2023-06-17] MEDS: risperiDONE 2mg tablet PEG SCH (20:12)
[2023-06-17 22:00] VITALS: BP 102/70; PULSE 87; RESP 14; TEMP 98.2; O2SAT 95
[2023-06-18] VITALS (7 sets, daily range): BP systolic 89–126; BP diastolic 57–72; PULSE 61–87; RESP 15–19; TEMP 97.5–98.5; O2SAT 96–98
[2023-06-18] MEDS: piperacillin/tazo 3.375gm/50ml 50 ML IV SCH ×4 (02:39→23:09)
[2023-06-18] MEDS: K and/or MAG REPLACEMENT MC SCH ×2 (08:00→20:00)
[2023-06-18] MEDS: famotidine 20mg tablet PEG SCH ×2 (08:29→20:41)
[2023-06-18] MEDS: heparin, porcine 5000 units/ml vial SQ SCH ×2 (08:29→20:40)
[2023-06-18] MEDS: risperiDONE 2mg tablet PEG SCH (20:40)
[2023-06-18] MEDS: clonazePAM 1mg tablet PEG SCH (20:41)
[2023-06-19] MEDS: ondansetron/PF 4mg/2ml inj IV PRN ×2 (00:31→15:46)
[2023-06-19 06:00] VITALS: BP 99/67; PULSE 89; RESP 12; TEMP 97.1; O2SAT 99
[2023-06-19] MEDS: K and/or MAG REPLACEMENT MC SCH ×2 (08:00→19:28)
[2023-06-19] MEDS: famotidine 20mg tablet PEG SCH ×2 (08:44→19:26)
[2023-06-19] MEDS: piperacillin/tazo 3.375gm/50ml 50 ML IV SCH ×2 (08:44→15:47)
[2023-06-19] MEDS: heparin, porcine 5000 units/ml vial SQ SCH ×2 (08:44→19:28)
[2023-06-19 10:00] VITALS: BP 109/72; PULSE 92; RESP 15; TEMP 98.7; O2SAT 98
[2023-06-19 12:19] LABS: ALANINE AMINOTRANSFERASE 13 U/L (12-78); ALBUMIN 2.7 G/DL (3.4-5.0); ALBUMIN/GLOBULIN RATIO 0.5 (1.1-1.5); ALKALINE PHOSPHATASE 71 IU/L (46-116); ANION GAP 8 (8-16); ASPARTATE AMINO TRANSFERASE 19 U/L (10-37); BASOPHILS # (AUTO) 0.2 X10'3 (0-0.2); BASOPHILS % (AUTO) 1.9 % (0-1); BILIRUBIN,TOTAL 0.3 MG/DL (0.1-1.0); BLOOD UREA NITROGEN 33 MG/DL (7-18); CALCIUM 9.3 MG/DL (8.5-10.1); CHLORIDE 106 MMOL/L (99-107); EOSINOPHILS % (AUTO) 0.3 % (0-6); GLUCOSE 142 MG/DL (70-104); HEMATOCRIT 34.1 % (42.0-52.0); HEMOGLOBIN 11.3 g/dl (14.0-17.9); LYMPHOCYTES # (AUTO) 1.6 X10'3 (1.1-4.8); LYMPHOCYTES % (AUTO) 18.2 % (21-51); MEAN CORPUSCULAR HEMOGLOBIN 27.4 PG (27.0-31.0); MEAN CORPUSCULAR HGB CONC 33.1 g/dL (33.0-36.5); MEAN CORPUSCULAR VOLUME 82.8 FL (78-98); MEAN PLATELET VOLUME 7.3 FL (7.4-10.4); MONOCYTES # (AUTO) 0.5 X10'3 (0-0.9); MONOCYTES % (AUTO) 5.6 % (2-12); NEUTROPHILS # (AUTO) 6.6 X10'3 (1.8-7.7); PLATELET COUNT 496 X10'3 (140-440); POTASSIUM 3.8 MMOL/L (3.5-5.1); RED BLOOD COUNT 4.12 X10'6 (4.70-6.10); RED CELL DISTRIBUTION WIDTH 16.2 % (11.5-14.5); SODIUM 142 MMOL/L (135-145); TOTAL CARBON DIOXIDE 27.8 MMOL/L (24-32); TOTAL PROTEIN 8.5 G/DL (6.4-8.2); eCRCL 93 ML/MIN; eGFR > 90 ML/MIN
[2023-06-19 18:00] VITALS: BP 106/77; PULSE 94; RESP 15; TEMP 98; O2SAT 100
[2023-06-19] MEDS: risperiDONE 2mg tablet PEG SCH (19:26)
[2023-06-19] MEDS: clonazePAM 1mg tablet PEG SCH (19:27)
[2023-06-19 22:00] VITALS: BP 93/61; PULSE 78; RESP 12; TEMP 97; O2SAT 97
[2023-06-20] VITALS (8 sets, daily range): BP systolic 95–110; BP diastolic 65–74; PULSE 78–91; RESP 13–18; TEMP 97.4–97.9; O2SAT 96–100
[2023-06-20] MEDS: piperacillin/tazo 3.375gm/50ml 50 ML IV SCH ×3 (00:08→16:31)
[2023-06-20] MEDS: K and/or MAG REPLACEMENT MC SCH ×2 (10:03→20:29)
[2023-06-20] MEDS: heparin, porcine 5000 units/ml vial SQ SCH ×2 (10:28→20:32)
[2023-06-20] MEDS: famotidine 20mg tablet PEG SCH ×2 (10:28→20:32)
[2023-06-20] MEDS: LORazepam 2 mg/ml vial IV PRN (16:02)
[2023-06-20] MEDS: risperiDONE 2mg tablet PEG SCH (20:32)
[2023-06-20] MEDS: clonazePAM 1mg tablet PEG SCH (20:32)
[2023-06-20] MEDS: morphine 2 MG/ML inj. syringe IV PRN (20:37)
[2023-06-21] MEDS: piperacillin/tazo 3.375gm/50ml 50 ML IV SCH ×3 (00:01→16:01)
[2023-06-21] MEDS: LORazepam 2 mg/ml vial IV PRN (00:03)
[2023-06-21 05:00] VITALS: BP 95/69; PULSE 82; RESP 14; TEMP 97.1; O2SAT 96
[2023-06-21] MEDS: morphine 2 MG/ML inj. syringe IV PRN (05:53)
[2023-06-21 07:19] VITALS: RESP 14; O2SAT 96
[2023-06-21] MEDS: famotidine 20mg tablet PEG SCH ×2 (07:52→20:00)
[2023-06-21] MEDS: heparin, porcine 5000 units/ml vial SQ SCH ×2 (07:52→21:05)
[2023-06-21] MEDS: K and/or MAG REPLACEMENT MC SCH ×2 (07:52→19:06)
[2023-06-21 10:00] VITALS: BP 96/56; PULSE 86; RESP 15; TEMP 98.3; O2SAT 100
[2023-06-21 18:00] VITALS: BP 95/68; PULSE 87; RESP 12; TEMP 97.6; O2SAT 100
[2023-06-21 20:00] VITALS: RESP 12; O2SAT 100
[2023-06-21] MEDS: risperiDONE 2mg tablet PEG SCH (21:04)
[2023-06-21] MEDS: clonazePAM 1mg tablet PEG SCH (21:04)
[2023-06-21 22:00] VITALS: BP 86/50; PULSE 64; RESP 14; TEMP 97.6; O2SAT 96
[2023-06-22] VITALS (8 sets, daily range): BP systolic 83–111; BP diastolic 48–73; PULSE 54–103; RESP 14–18; TEMP 97.3–97.9; O2SAT 93–99
[2023-06-22] MEDS: piperacillin/tazo 3.375gm/50ml 50 ML IV SCH ×3 (00:46→15:21)
[2023-06-22] MEDS: morphine 2 MG/ML inj. syringe IV PRN (01:57)
[2023-06-22] MEDS: LORazepam 2 mg/ml vial IV PRN (03:04)
[2023-06-22] MEDS: K and/or MAG REPLACEMENT MC SCH ×2 (08:00→20:00)
[2023-06-22] MEDS: famotidine 20mg tablet PEG SCH ×2 (08:20→20:14)
[2023-06-22] MEDS: heparin, porcine 5000 units/ml vial SQ SCH ×2 (08:20→20:14)
[2023-06-22] MEDS: risperiDONE 2mg tablet PEG SCH (20:14)
[2023-06-22] MEDS: clonazePAM 1mg tablet PEG SCH (20:14)
[2023-06-23] VITALS (7 sets, daily range): BP systolic 88–150; BP diastolic 54–86; PULSE 63–88; RESP 12–20; TEMP 97.4–98.6; O2SAT 97–100
[2023-06-23] MEDS: piperacillin/tazo 3.375gm/50ml 50 ML IV SCH ×4 (01:02→23:48)
[2023-06-23 06:24] LABS: ALANINE AMINOTRANSFERASE 16 U/L (12-78); ALBUMIN 2.7 G/DL (3.4-5.0); ALBUMIN/GLOBULIN RATIO 0.6 (1.1-1.5); ALKALINE PHOSPHATASE 58 IU/L (46-116); ANION GAP 10 (8-16); ASPARTATE AMINO TRANSFERASE 21 U/L (10-37); BILIRUBIN,TOTAL 0.3 MG/DL (0.1-1.0); BLOOD UREA NITROGEN 25 MG/DL (7-18); BUN/CREATININE RATIO 52.1 (10.0-20.0); CALCIUM 9.2 MG/DL (8.5-10.1); CHLORIDE 107 MMOL/L (99-107); CREATININE 0.48 MG/DL (0.60-1.10); GLUCOSE 120 MG/DL (70-104); MAGNESIUM 2.6 MG/DL (1.5-2.4); PHOSPHORUS 4.5 MG/DL (2.3-4.5); POTASSIUM 3.9 MMOL/L (3.5-5.1); SODIUM 142 MMOL/L (135-145); TOTAL CARBON DIOXIDE 25.4 MMOL/L (24-32); TOTAL PROTEIN 7.6 G/DL (6.4-8.2); eCRCL 81 ML/MIN; eGFR > 90 ML/MIN
[2023-06-23] MEDS: K and/or MAG REPLACEMENT MC SCH ×2 (08:00→20:00)
[2023-06-23] MEDS: famotidine 20mg tablet PEG SCH ×2 (08:40→19:57)
[2023-06-23] MEDS: heparin, porcine 5000 units/ml vial SQ SCH ×2 (08:43→19:51)
[2023-06-23 08:47] LABS: BASOPHILS % (AUTO) 0.4 % (0-1); EOSINOPHILS # (AUTO) 0.1 X10'3 (0-0.9); HEMATOCRIT 29.1 % (42.0-52.0); HEMOGLOBIN 9.2 g/dl (14.0-17.9); LYMPHOCYTES # (AUTO) 1.6 X10'3 (1.1-4.8); LYMPHOCYTES % (AUTO) 19.6 % (21-51); MEAN CORPUSCULAR HEMOGLOBIN 27.4 PG (27.0-31.0); MEAN CORPUSCULAR HGB CONC 31.6 g/dL (33.0-36.5); MEAN CORPUSCULAR VOLUME 86.5 FL (78-98); MEAN PLATELET VOLUME 7.2 FL (7.4-10.4); MONOCYTES # (AUTO) 0.6 X10'3 (0-0.9); MONOCYTES % (AUTO) 6.9 % (2-12); NEUTROPHILS # (AUTO) 5.9 X10'3 (1.8-7.7); NEUTROPHILS % (AUTO) 72.1 % (42-75); PLATELET COUNT 365 X10'3 (140-440); RED BLOOD COUNT 3.36 X10'6 (4.70-6.10); RED CELL DISTRIBUTION WIDTH 17.4 % (11.5-14.5); WHITE BLOOD COUNT 8.1 X10'3 (4.5-11.0)
[2023-06-23] MEDS: clonazePAM 1mg tablet PEG SCH (20:12)
[2023-06-23] MEDS: risperiDONE 2mg tablet PEG SCH (20:12)
[2023-06-24] VITALS (7 sets, daily range): BP systolic 99–111; BP diastolic 54–72; PULSE 70–99; RESP 12–19; TEMP 97.6–98.9; O2SAT 96–100
[2023-06-24] MEDS: K and/or MAG REPLACEMENT MC SCH ×2 (08:00→20:00)
[2023-06-24] MEDS: piperacillin/tazo 3.375gm/50ml 50 ML IV SCH ×3 (10:16→23:41)
[2023-06-24] MEDS: famotidine 20mg tablet PEG SCH ×2 (10:22→19:51)
[2023-06-24] MEDS: heparin, porcine 5000 units/ml vial SQ SCH ×2 (10:40→19:56)
[2023-06-24] MEDS: LORazepam 2 mg/ml vial IV PRN (14:42)
[2023-06-24] MEDS: clonazePAM 1mg tablet PEG SCH (19:51)
[2023-06-24] MEDS: risperiDONE 2mg tablet PEG SCH (19:51)
[2023-06-25] VITALS (8 sets, daily range): BP systolic 98–105; BP diastolic 62–77; PULSE 78–93; RESP 12–18; TEMP 97.3–98.3; O2SAT 95–98
[2023-06-25] MEDS: K and/or MAG REPLACEMENT MC SCH ×2 (08:00→20:00)
[2023-06-25] MEDS: piperacillin/tazo 3.375gm/50ml 50 ML IV SCH ×2 (08:20→16:15)
[2023-06-25] MEDS: famotidine 20mg tablet PEG SCH ×2 (08:20→21:10)
[2023-06-25] MEDS: heparin, porcine 5000 units/ml vial SQ SCH ×2 (08:21→19:15)
[2023-06-25] MEDS: LORazepam 2 mg/ml vial IV PRN ×2 (11:48→21:10)
[2023-06-25] MEDS ORDERED: morphine 2 MG/ML inj. syringe IV PRN (12:20)
[2023-06-25] MEDS: lactulose 20gm/30ml cup PO SCH (18:50)
[2023-06-25] MEDS: mag hydrox/Alum hydrox/simeth 30ml oral suspension PEG PRN (18:51)
[2023-06-25] MEDS: acetaminophen 325mg/10.15ml oral unit dose solution PEG PRN (18:53)
[2023-06-25] MEDS: ondansetron/PF 4mg/2ml inj IV PRN (19:13)
[2023-06-25] MEDS: morphine 2 MG/ML inj. syringe IV PRN (19:14)
[2023-06-25] MEDS ORDERED: lactulose 20gm/30ml cup PO SCH (20:00)
[2023-06-25] MEDS: clonazePAM 1mg tablet PEG SCH (21:10)
[2023-06-25] MEDS: risperiDONE 2mg tablet PEG SCH (21:10)
[2023-06-26] VITALS (7 sets, daily range): BP systolic 93–111; BP diastolic 56–78; PULSE 70–84; RESP 12–16; TEMP 97.1–98.6; O2SAT 96–100
[2023-06-26] MEDS: piperacillin/tazo 3.375gm/50ml 50 ML IV SCH ×3 (00:26→15:46)
[2023-06-26] MEDS: acetaminophen 325mg/10.15ml oral unit dose solution PEG PRN (04:25)
[2023-06-26] MEDS: mag hydrox/Alum hydrox/simeth 30ml oral suspension PEG PRN (04:25)
[2023-06-26] MEDS: LORazepam 2 mg/ml vial IV PRN ×3 (05:25→15:54)
[2023-06-26] MEDS: morphine 2 MG/ML inj. syringe IV PRN ×2 (07:00→14:25)
[2023-06-26] MEDS: lactulose 20gm/30ml cup PO SCH (08:00)
[2023-06-26] MEDS: K and/or MAG REPLACEMENT MC SCH ×2 (08:00→20:00)
[2023-06-26] MEDS: famotidine 20mg tablet PEG SCH (08:38)
[2023-06-26] MEDS: heparin, porcine 5000 units/ml vial SQ SCH ×2 (08:38→20:53)
[2023-06-26] MEDS: HYDROcodone/acetaminophen 5mg/325mg tablet PO PRN (10:32)
[2023-06-26] MEDS ORDERED: mineral oil 133ml enema RC ONE (11:30)
[2023-06-26] MEDS ORDERED: MAGNESIUM HYDROXIDE 2400 MG PO PRN (12:00)
[2023-06-26] MEDS ORDERED: non-formulary drug (Acetaminophen 1 TAB) GT PRN (12:00)
[2023-06-26] MEDS: pantoprazole 40 MG vial IV SCH (12:10)
[2023-06-26] MEDS: simethicone 40mg/0.6ml oral drops 30ml PO PRN ×2 (12:10→20:49)
[2023-06-26] MEDS ORDERED: OLANZapine 5mg rapidly disint. tablet GT SCH (20:00)
[2023-06-26] MEDS ORDERED: LOPERAMIDE 2 mg/15 ml oral solution UD PEG PRN ×3 (20:00→21:00)
[2023-06-26] MEDS: OLANZapine 5mg rapidly disint. tablet GT SCH (20:35)
[2023-06-26] MEDS: ferrous sulfate 300mg/5ml UD oral liquid PEG SCH (20:53)
[2023-06-26] MEDS ORDERED: hydrOXYzine 25 MG tablet PEG SCH (21:00)
[2023-06-27] MEDS: piperacillin/tazo 3.375gm/50ml 50 ML IV SCH ×3 (00:07→15:23)
[2023-06-27] MEDS: clonazePAM 1mg tablet PEG SCH ×2 (00:07→22:14)
[2023-06-27] MEDS: risperiDONE 2mg tablet PEG SCH ×2 (00:07→22:17)
[2023-06-27] MEDS: Melatonin 3mg tablet GT SCH ×2 (01:02→22:14)
[2023-06-27] MEDS: OLANZapine 5mg rapidly disint. tablet PEG SCH ×2 (01:02→22:15)
[2023-06-27] MEDS: LOPERAMIDE 2 mg/15 ml oral solution UD PEG PRN ×2 (01:09→19:57)
[2023-06-27 08:00] VITALS: RESP 15; O2SAT 99
[2023-06-27] MEDS ORDERED: [UNRECOGNIZED DRUG - OTHER] GT SCH (08:00)
[2023-06-27] MEDS ORDERED: non-formulary drug (Dexlansoprazole (Dexilant) 1 CAP) GT SCH (08:00)
[2023-06-27] MEDS: heparin, porcine 5000 units/ml vial SQ SCH ×2 (08:00→19:58)
[2023-06-27] MEDS: K and/or MAG REPLACEMENT MC SCH ×2 (08:00→19:18)
[2023-06-27] MEDS ORDERED: multivitamin oral liquid (Certavite) 5ml cup PEG SCH (08:00)
[2023-06-27] MEDS ORDERED: lactobacillus acidophilus cap PEG SCH (08:00)
[2023-06-27] MEDS: ferrous sulfate 300mg/5ml UD oral liquid PEG SCH ×2 (09:08→19:58)
[2023-06-27] MEDS: pantoprazole 40 MG vial IV SCH (09:08)
[2023-06-27] MEDS: fluoxetine 20mg/5ml UD cup PEG SCH (09:08)
[2023-06-27] MEDS: risperiDONE 0.5mg tablet PEG SCH (09:09)
[2023-06-27] MEDS: OLANZapine 5mg rapidly disint. tablet GT SCH ×2 (09:09→12:12)
[2023-06-27 10:00] VITALS: BP 96/64; PULSE 82; RESP 15; TEMP 97.3; O2SAT 99
[2023-06-27] MEDS: LORazepam 2 mg/ml vial IV PRN ×2 (10:24→19:59)
[2023-06-27] MEDS: morphine 2 MG/ML inj. syringe IV PRN ×2 (10:27→19:59)
[2023-06-27 10:54] LABS: BASOPHILS % (AUTO) 0.6 % (0-1); EOSINOPHILS # (AUTO) 0.2 X10'3 (0-0.9); EOSINOPHILS % (AUTO) 3.5 % (0-6); HEMATOCRIT 35.5 % (42.0-52.0); HEMOGLOBIN 11.2 g/dl (14.0-17.9); LYMPHOCYTES # (AUTO) 2.3 X10'3 (1.1-4.8); LYMPHOCYTES % (AUTO) 36.5 % (21-51); MEAN CORPUSCULAR HEMOGLOBIN 28.2 PG (27.0-31.0); MEAN CORPUSCULAR HGB CONC 31.7 g/dL (33.0-36.5); MEAN CORPUSCULAR VOLUME 88.9 FL (78-98); MEAN PLATELET VOLUME 7.6 FL (7.4-10.4); MONOCYTES # (AUTO) 0.6 X10'3 (0-0.9); MONOCYTES % (AUTO) 9.2 % (2-12); NEUTROPHILS # (AUTO) 3.2 X10'3 (1.8-7.7); NEUTROPHILS % (AUTO) 50.2 % (42-75); PLATELET COUNT 281 X10'3 (140-440); RED BLOOD COUNT 3.99 X10'6 (4.70-6.10); RED CELL DISTRIBUTION WIDTH 19.7 % (11.5-14.5); WHITE BLOOD COUNT 6.4 X10'3 (4.5-11.0)
[2023-06-27 11:44] LABS: ALANINE AMINOTRANSFERASE 26 U/L (12-78); ALBUMIN 2.8 G/DL (3.4-5.0); ALBUMIN/GLOBULIN RATIO 0.6 (1.1-1.5); ALKALINE PHOSPHATASE 62 IU/L (46-116); ANION GAP 13 (8-16); ASPARTATE AMINO TRANSFERASE 33 U/L (10-37); BILIRUBIN,TOTAL 0.3 MG/DL (0.1-1.0); BLOOD UREA NITROGEN 32 MG/DL (7-18); BUN/CREATININE RATIO 62.7 (10.0-20.0); CALCIUM 9.5 MG/DL (8.5-10.1); CHLORIDE 115 MMOL/L (99-107); CREATININE 0.51 MG/DL (0.60-1.10); GLUCOSE 76 MG/DL (70-104); POTASSIUM 4.4 MMOL/L (3.5-5.1); SODIUM 153 MMOL/L (135-145); TOTAL CARBON DIOXIDE 24.8 MMOL/L (24-32); TOTAL PROTEIN 7.7 G/DL (6.4-8.2); eCRCL 70 ML/MIN; eGFR > 90 ML/MIN
[2023-06-27] MEDS: HYDROcodone/acetaminophen 5mg/325mg tablet PO PRN (12:13)
[2023-06-27 14:27] LABS: PLATELET ESTIMATE NORMAL
[2023-06-27 14:28] LABS: ANISOCYTOSIS 2+; BURR CELLS 2+
[2023-06-27 14:29] LABS: SCHISTOCYTES FEW
[2023-06-27 18:00] VITALS: BP 97/65; PULSE 77; RESP 16; TEMP 98.2; O2SAT 97
[2023-06-27 20:00] VITALS: RESP 16; O2SAT 97
[2023-06-27 22:00] VITALS: BP 113/68; PULSE 95; RESP 14; TEMP 97.5; O2SAT 96
[2023-06-27] MEDS: hydrOXYzine 25 MG tablet PEG PRN (22:14)
[2023-06-27 23:43] VITALS: PULSE 80; RESP 16; O2SAT 98
[2023-06-28] VITALS (8 sets, daily range): BP systolic 97–111; BP diastolic 57–67; PULSE 66–88; RESP 12–16; TEMP 97.5–98.8; O2SAT 95–98
[2023-06-28] MEDS: piperacillin/tazo 3.375gm/50ml 50 ML IV SCH ×4 (00:54→23:26)
[2023-06-28 06:58] LABS: BASOPHILS % (AUTO) 0.4 % (0-1); EOSINOPHILS # (AUTO) 0.2 X10'3 (0-0.9); EOSINOPHILS % (AUTO) 3.2 % (0-6); HEMATOCRIT 32.6 % (42.0-52.0); HEMOGLOBIN 10.6 g/dl (14.0-17.9); LYMPHOCYTES # (AUTO) 1.8 X10'3 (1.1-4.8); MEAN CORPUSCULAR HEMOGLOBIN 28.7 PG (27.0-31.0); MEAN CORPUSCULAR HGB CONC 32.6 g/dL (33.0-36.5); MEAN CORPUSCULAR VOLUME 87.9 FL (78-98); MEAN PLATELET VOLUME 7.4 FL (7.4-10.4); MONOCYTES # (AUTO) 0.6 X10'3 (0-0.9); MONOCYTES % (AUTO) 7.9 % (2-12); NEUTROPHILS # (AUTO) 4.9 X10'3 (1.8-7.7); NEUTROPHILS % (AUTO) 64.5 % (42-75); PLATELET COUNT 288 X10'3 (140-440); RED BLOOD COUNT 3.71 X10'6 (4.70-6.10); RED CELL DISTRIBUTION WIDTH 19.5 % (11.5-14.5); WHITE BLOOD COUNT 7.6 X10'3 (4.5-11.0)
[2023-06-28 07:15] LABS: ALANINE AMINOTRANSFERASE 24 U/L (12-78); ALBUMIN 2.7 G/DL (3.4-5.0); ALBUMIN/GLOBULIN RATIO 0.6 (1.1-1.5); ALKALINE PHOSPHATASE 61 IU/L (46-116); ANION GAP 9 (8-16); ASPARTATE AMINO TRANSFERASE 19 U/L (10-37); BILIRUBIN,TOTAL 0.3 MG/DL (0.1-1.0); BLOOD UREA NITROGEN 29 MG/DL (7-18); BUN/CREATININE RATIO 47.5 (10.0-20.0); CALCIUM 9.2 MG/DL (8.5-10.1); CHLORIDE 112 MMOL/L (99-107); CREATININE 0.61 MG/DL (0.60-1.10); GLUCOSE 105 MG/DL (70-104); POTASSIUM 3.9 MMOL/L (3.5-5.1); SODIUM 149 MMOL/L (135-145); TOTAL CARBON DIOXIDE 27.6 MMOL/L (24-32); TOTAL PROTEIN 7.4 G/DL (6.4-8.2); eCRCL 58 ML/MIN; eGFR > 90 ML/MIN
[2023-06-28] MEDS: K and/or MAG REPLACEMENT MC SCH ×2 (07:42→20:00)
[2023-06-28] MEDS: OLANZapine 5mg rapidly disint. tablet GT SCH ×2 (08:42→12:45)
[2023-06-28] MEDS: lactobacillus rhamnosus 10,000 MMU CELLS/CAPSULE PEG SCH (08:43)
[2023-06-28] MEDS: fluoxetine 20mg/5ml UD cup PEG SCH (08:44)
[2023-06-28] MEDS: ferrous sulfate 300mg/5ml UD oral liquid PEG SCH ×2 (08:44→21:38)
[2023-06-28] MEDS: lansoprazole 15mg solutab PEG SCH (08:44)
[2023-06-28] MEDS: risperiDONE 0.5mg tablet PEG SCH (08:44)
[2023-06-28] MEDS: heparin, porcine 5000 units/ml vial SQ SCH ×2 (08:45→21:35)
[2023-06-28] MEDS ORDERED: MULTIVIT-MIN/FERROUS GLUCONATE 9 MG/15 ML LIQUID PEG ONE (10:00)
[2023-06-28] MEDS: LOPERAMIDE 2 mg/15 ml oral solution UD PEG PRN (12:48)
[2023-06-28] MEDS: risperiDONE 2mg tablet PEG SCH (21:35)
[2023-06-28] MEDS: hydrOXYzine 25 MG tablet PEG PRN (21:35)
[2023-06-28] MEDS: clonazePAM 1mg tablet PEG SCH (21:36)
[2023-06-28] MEDS: Melatonin 3mg tablet GT SCH (21:36)
[2023-06-28] MEDS: OLANZapine 5mg rapidly disint. tablet PEG SCH (21:38)
[2023-06-29] VITALS (7 sets, daily range): BP systolic 90–95; BP diastolic 51–66; PULSE 68–91; RESP 12–18; TEMP 97.3–98.8; O2SAT 95–98
[2023-06-29] MEDS: K and/or MAG REPLACEMENT MC SCH ×2 (08:00→20:00)
[2023-06-29] MEDS ORDERED: MULTIVIT-MIN/FERROUS GLUCONATE 9 MG/15 ML LIQUID PEG SCH (08:00)
[2023-06-29] MEDS: heparin, porcine 5000 units/ml vial SQ SCH ×2 (08:00→20:12)
[2023-06-29] MEDS: lansoprazole 15mg solutab PEG SCH (09:49)
[2023-06-29] MEDS: lactobacillus rhamnosus 10,000 MMU CELLS/CAPSULE PEG SCH (09:49)
[2023-06-29] MEDS: OLANZapine 5mg rapidly disint. tablet GT SCH ×2 (09:49→12:30)
[2023-06-29] MEDS: fluoxetine 20mg/5ml UD cup PEG SCH (09:49)
[2023-06-29] MEDS: risperiDONE 0.5mg tablet PEG SCH (09:50)
[2023-06-29] MEDS: piperacillin/tazo 3.375gm/50ml 50 ML IV SCH ×2 (09:51→16:39)
[2023-06-29] MEDS: ferrous sulfate 300mg/5ml UD oral liquid PEG SCH ×2 (14:06→20:11)
[2023-06-29] MEDS: Melatonin 3mg tablet GT SCH (21:37)
[2023-06-29] MEDS: risperiDONE 2mg tablet PEG SCH (21:37)
[2023-06-29] MEDS: clonazePAM 1mg tablet PEG SCH (21:38)
[2023-06-29] MEDS: OLANZapine 5mg rapidly disint. tablet PEG SCH (21:43)
[2023-06-30] MEDS: piperacillin/tazo 3.375gm/50ml 50 ML IV SCH ×4 (00:26→23:48)
[2023-06-30 06:00] VITALS: BP 84/50; PULSE 82; RESP 16; TEMP 97.6; O2SAT 95
[2023-06-30 07:12] LABS: BASOPHILS % (AUTO) 0.5 % (0-1); EOSINOPHILS # (AUTO) 0.3 X10'3 (0-0.9); EOSINOPHILS % (AUTO) 4.4 % (0-6); HEMATOCRIT 33.5 % (42.0-52.0); HEMOGLOBIN 10.9 g/dl (14.0-17.9); LYMPHOCYTES % (AUTO) 27.5 % (21-51); MEAN CORPUSCULAR HEMOGLOBIN 28.3 PG (27.0-31.0); MEAN CORPUSCULAR HGB CONC 32.5 g/dL (33.0-36.5); MEAN PLATELET VOLUME 7.4 FL (7.4-10.4); MONOCYTES # (AUTO) 0.6 X10'3 (0-0.9); MONOCYTES % (AUTO) 8.9 % (2-12); NEUTROPHILS # (AUTO) 4.2 X10'3 (1.8-7.7); NEUTROPHILS % (AUTO) 58.7 % (42-75); PLATELET COUNT 249 X10'3 (140-440); RED BLOOD COUNT 3.85 X10'6 (4.70-6.10); RED CELL DISTRIBUTION WIDTH 19.5 % (11.5-14.5); WHITE BLOOD COUNT 7.1 X10'3 (4.5-11.0)
[2023-06-30 07:33] LABS: ALANINE AMINOTRANSFERASE 29 U/L (12-78); ALBUMIN 2.7 G/DL (3.4-5.0); ALBUMIN/GLOBULIN RATIO 0.6 (1.1-1.5); ALKALINE PHOSPHATASE 65 IU/L (46-116); ANION GAP 7 (8-16); ASPARTATE AMINO TRANSFERASE 17 U/L (10-37); BILIRUBIN,TOTAL 0.4 MG/DL (0.1-1.0); BLOOD UREA NITROGEN 24 MG/DL (7-18); BUN/CREATININE RATIO 42.1 (10.0-20.0); CALCIUM 9.1 MG/DL (8.5-10.1); CHLORIDE 106 MMOL/L (99-107); CREATININE 0.57 MG/DL (0.60-1.10); GLUCOSE 99 MG/DL (70-104); POTASSIUM 4.1 MMOL/L (3.5-5.1); SODIUM 141 MMOL/L (135-145); TOTAL CARBON DIOXIDE 27.7 MMOL/L (24-32); TOTAL PROTEIN 7.5 G/DL (6.4-8.2); eCRCL 70 ML/MIN; eGFR > 90 ML/MIN
[2023-06-30] MEDS: K and/or MAG REPLACEMENT MC SCH ×2 (08:00→20:00)
[2023-06-30] MEDS: heparin, porcine 5000 units/ml vial SQ SCH ×2 (08:00→19:39)
[2023-06-30] MEDS: ferrous sulfate 300mg/5ml UD oral liquid PEG SCH ×2 (08:21→19:38)
[2023-06-30] MEDS: fluoxetine 20mg/5ml UD cup PEG SCH (08:21)
[2023-06-30] MEDS: lansoprazole 15mg solutab PEG SCH (08:22)
[2023-06-30] MEDS: lactobacillus rhamnosus 10,000 MMU CELLS/CAPSULE PEG SCH (08:23)
[2023-06-30] MEDS: risperiDONE 0.5mg tablet PEG SCH (08:23)
[2023-06-30] MEDS: OLANZapine 5mg rapidly disint. tablet GT SCH ×2 (08:23→13:18)
[2023-06-30] MEDS: simethicone 40mg/0.6ml oral drops 30ml PO PRN (08:35)
[2023-06-30 10:00] VITALS: BP 103/61; PULSE 94; RESP 14; TEMP 98.1; O2SAT 97
[2023-06-30 10:02] VITALS: PULSE 82; RESP 16; O2SAT 97
[2023-06-30 18:40] VITALS: BP 102/56; PULSE 83; RESP 14; TEMP 98.3; O2SAT 98
[2023-06-30] MEDS: Melatonin 3mg tablet GT SCH (21:30)
[2023-06-30] MEDS: risperiDONE 2mg tablet PEG SCH (21:30)
[2023-06-30] MEDS: OLANZapine 5mg rapidly disint. tablet PEG SCH (21:30)
[2023-06-30] MEDS: clonazePAM 1mg tablet PEG SCH (21:30)
[2023-06-30 22:00] VITALS: BP 89/55; PULSE 88; RESP 16; TEMP 97.3; O2SAT 97
[2023-07-01 06:00] VITALS: BP 85/56; PULSE 79; RESP 14; TEMP 96.4; O2SAT 98
[2023-07-01] MEDS: piperacillin/tazo 3.375gm/50ml 50 ML IV SCH (06:55)
[2023-07-01] MEDS: simethicone 40mg/0.6ml oral drops 30ml PO PRN (06:55)
[2023-07-01] MEDS: ferrous sulfate 300mg/5ml UD oral liquid PEG SCH ×2 (06:55→22:45)
[2023-07-01] MEDS: fluoxetine 20mg/5ml UD cup PEG SCH (06:56)
[2023-07-01] MEDS: risperiDONE 0.5mg tablet PEG SCH (06:57)
[2023-07-01] MEDS: heparin, porcine 5000 units/ml vial SQ SCH ×2 (06:57→22:47)
[2023-07-01] MEDS: lactobacillus rhamnosus 10,000 MMU CELLS/CAPSULE PEG SCH (06:57)
[2023-07-01] MEDS: HYDROcodone/acetaminophen 5mg/325mg tablet PO PRN ×2 (06:58→14:56)
[2023-07-01] MEDS: lansoprazole 15mg solutab PEG SCH (07:07)
[2023-07-01] MEDS: OLANZapine 5mg rapidly disint. tablet GT SCH ×2 (07:08→11:53)
[2023-07-01 07:12] LABS: BASOPHILS % (AUTO) 0.4 % (0-1); EOSINOPHILS # (AUTO) 0.3 X10'3 (0-0.9); EOSINOPHILS % (AUTO) 4.1 % (0-6); HEMATOCRIT 33.8 % (42.0-52.0); HEMOGLOBIN 10.9 g/dl (14.0-17.9); LYMPHOCYTES # (AUTO) 1.7 X10'3 (1.1-4.8); MEAN CORPUSCULAR HEMOGLOBIN 28.4 PG (27.0-31.0); MEAN CORPUSCULAR HGB CONC 32.2 g/dL (33.0-36.5); MEAN CORPUSCULAR VOLUME 88.1 FL (78-98); MEAN PLATELET VOLUME 7.7 FL (7.4-10.4); MONOCYTES # (AUTO) 0.5 X10'3 (0-0.9); MONOCYTES % (AUTO) 7.1 % (2-12); NEUTROPHILS % (AUTO) 62.4 % (42-75); PLATELET COUNT 193 X10'3 (140-440); RED BLOOD COUNT 3.84 X10'6 (4.70-6.10); RED CELL DISTRIBUTION WIDTH 19.7 % (11.5-14.5); WHITE BLOOD COUNT 6.5 X10'3 (4.5-11.0)
[2023-07-01 07:40] LABS: ALANINE AMINOTRANSFERASE 24 U/L (12-78); ALBUMIN 2.5 G/DL (3.4-5.0); ALBUMIN/GLOBULIN RATIO 0.5 (1.1-1.5); ALKALINE PHOSPHATASE 57 IU/L (46-116); ANION GAP 9 (8-16); ASPARTATE AMINO TRANSFERASE 24 U/L (10-37); BILIRUBIN,TOTAL 0.3 MG/DL (0.1-1.0); BLOOD UREA NITROGEN 20 MG/DL (7-18); BUN/CREATININE RATIO 40.8 (10.0-20.0); CHLORIDE 103 MMOL/L (99-107); CREATININE 0.49 MG/DL (0.60-1.10); GLUCOSE 91 MG/DL (70-104); SODIUM 136 MMOL/L (135-145); TOTAL CARBON DIOXIDE 24.1 MMOL/L (24-32); TOTAL PROTEIN 7.1 G/DL (6.4-8.2); eCRCL 80 ML/MIN; eGFR > 90 ML/MIN
[2023-07-01 07:42] LABS: POTASSIUM 4.5 MMOL/L (3.5-5.1)
[2023-07-01] MEDS: K and/or MAG REPLACEMENT MC SCH ×2 (08:00→19:56)
[2023-07-01 08:21] VITALS: PULSE 81; RESP 16; O2SAT 97
[2023-07-01 18:00] VITALS: BP 100/70; PULSE 59; RESP 16; TEMP 98.1; O2SAT 98
[2023-07-01 20:00] VITALS: RESP 18; O2SAT 95
[2023-07-01 20:28] VITALS: PULSE 71; RESP 16; O2SAT 95
[2023-07-01 22:00] VITALS: BP 129/65; PULSE 71; RESP 16; TEMP 98.1; O2SAT 96
[2023-07-01] MEDS: OLANZapine 5mg rapidly disint. tablet PEG SCH (22:45)
[2023-07-01] MEDS: clonazePAM 1mg tablet PEG SCH (22:45)
[2023-07-01] MEDS: risperiDONE 2mg tablet PEG SCH (22:46)
[2023-07-01] MEDS: Melatonin 3mg tablet GT SCH (22:46)
[2023-07-02 06:00] VITALS: BP 117/62; PULSE 71; RESP 16; TEMP 98.1; O2SAT 96
[2023-07-02 06:59] LABS: BASOPHILS % (AUTO) 0.4 % (0-1); EOSINOPHILS # (AUTO) 0.3 X10'3 (0-0.9); EOSINOPHILS % (AUTO) 4.7 % (0-6); HEMATOCRIT 34.5 % (42.0-52.0); HEMOGLOBIN 11.4 g/dl (14.0-17.9); LYMPHOCYTES # (AUTO) 1.4 X10'3 (1.1-4.8); LYMPHOCYTES % (AUTO) 22.1 % (21-51); MEAN CORPUSCULAR HEMOGLOBIN 28.5 PG (27.0-31.0); MEAN CORPUSCULAR HGB CONC 33.1 g/dL (33.0-36.5); MEAN CORPUSCULAR VOLUME 85.9 FL (78-98); MEAN PLATELET VOLUME 7.3 FL (7.4-10.4); MONOCYTES # (AUTO) 0.5 X10'3 (0-0.9); MONOCYTES % (AUTO) 7.5 % (2-12); NEUTROPHILS # (AUTO) 4.2 X10'3 (1.8-7.7); NEUTROPHILS % (AUTO) 65.3 % (42-75); PLATELET COUNT 228 X10'3 (140-440); RED BLOOD COUNT 4.02 X10'6 (4.70-6.10); RED CELL DISTRIBUTION WIDTH 19.3 % (11.5-14.5); WHITE BLOOD COUNT 6.4 X10'3 (4.5-11.0)
[2023-07-02 07:12] LABS: ALANINE AMINOTRANSFERASE 28 U/L (12-78); ALBUMIN 2.7 G/DL (3.4-5.0); ALBUMIN/GLOBULIN RATIO 0.6 (1.1-1.5); ALKALINE PHOSPHATASE 61 IU/L (46-116); ANION GAP 9 (8-16); ASPARTATE AMINO TRANSFERASE 13 U/L (10-37); BILIRUBIN,TOTAL 0.3 MG/DL (0.1-1.0); BLOOD UREA NITROGEN 18 MG/DL (7-18); BUN/CREATININE RATIO 43.9 (10.0-20.0); CALCIUM 9.1 MG/DL (8.5-10.1); CHLORIDE 104 MMOL/L (99-107); CREATININE 0.41 MG/DL (0.60-1.10); GLUCOSE 112 MG/DL (70-104); POTASSIUM 3.8 MMOL/L (3.5-5.1); SODIUM 139 MMOL/L (135-145); TOTAL CARBON DIOXIDE 26.5 MMOL/L (24-32); TOTAL PROTEIN 7.4 G/DL (6.4-8.2); eCRCL 95 ML/MIN; eGFR > 90 ML/MIN
[2023-07-02] MEDS: OLANZapine 5mg rapidly disint. tablet GT SCH ×2 (07:30→12:30)
[2023-07-02] MEDS: lansoprazole 15mg solutab PEG SCH (07:57)
[2023-07-02] MEDS: K and/or MAG REPLACEMENT MC SCH (08:00)
[2023-07-02] MEDS: fluoxetine 20mg/5ml UD cup PEG SCH (08:20)
[2023-07-02] MEDS: ferrous sulfate 300mg/5ml UD oral liquid PEG SCH ×2 (08:23→21:05)
[2023-07-02] MEDS: risperiDONE 0.5mg tablet PEG SCH (08:24)
[2023-07-02] MEDS: lactobacillus rhamnosus 10,000 MMU CELLS/CAPSULE PEG SCH (08:24)
[2023-07-02] MEDS: HYDROcodone/acetaminophen 5mg/325mg tablet PO PRN (08:25)
[2023-07-02] MEDS: heparin, porcine 5000 units/ml vial SQ SCH ×2 (08:27→21:19)
[2023-07-02 10:00] VITALS: BP 87/64; PULSE 97; RESP 18; TEMP 97.9; O2SAT 97
[2023-07-02 17:30] VITALS: PULSE 85; RESP 17; O2SAT 98
[2023-07-02 20:00] VITALS: BP 110/61; PULSE 75; RESP 14; TEMP 98; O2SAT 96
[2023-07-02] MEDS: clonazePAM 1mg tablet PEG SCH (21:06)
[2023-07-02] MEDS: risperiDONE 2mg tablet PEG SCH (21:06)
[2023-07-02] MEDS: OLANZapine 5mg rapidly disint. tablet PEG SCH (21:11)
[2023-07-02] MEDS: Melatonin 3mg tablet GT SCH (21:19)
[2023-07-02 22:02] VITALS: PULSE 75; RESP 16; O2SAT 98
[2023-07-03 06:00] VITALS: BP 111/64; PULSE 76; RESP 15; TEMP 97.3; O2SAT 93
[2023-07-03] MEDS: OLANZapine 5mg rapidly disint. tablet GT SCH (07:30)
[2023-07-03] MEDS: lansoprazole 15mg solutab PEG SCH (07:45)
[2023-07-03] MEDS: fluoxetine 20mg/5ml UD cup PEG SCH (07:58)
[2023-07-03] MEDS: risperiDONE 0.5mg tablet PEG SCH (07:58)
[2023-07-03] MEDS: ferrous sulfate 300mg/5ml UD oral liquid PEG SCH (07:59)
[2023-07-03] MEDS: heparin, porcine 5000 units/ml vial SQ SCH (08:00)
[2023-07-03] MEDS: HYDROcodone/acetaminophen 5mg/325mg tablet PO PRN (08:01)
[2023-07-03] MEDS: lactobacillus rhamnosus 10,000 MMU CELLS/CAPSULE PEG SCH (08:01)
[2023-07-03 08:12] LABS: BASOPHILS % (AUTO) 0.5 % (0-1); EOSINOPHILS # (AUTO) 0.3 X10'3 (0-0.9); EOSINOPHILS % (AUTO) 3.5 % (0-6); HEMATOCRIT 35.2 % (42.0-52.0); HEMOGLOBIN 11.5 g/dl (14.0-17.9); LYMPHOCYTES # (AUTO) 1.5 X10'3 (1.1-4.8); LYMPHOCYTES % (AUTO) 19.2 % (21-51); MEAN CORPUSCULAR HEMOGLOBIN 28.6 PG (27.0-31.0); MEAN CORPUSCULAR HGB CONC 32.8 g/dL (33.0-36.5); MEAN CORPUSCULAR VOLUME 87.1 FL (78-98); MEAN PLATELET VOLUME 7.6 FL (7.4-10.4); MONOCYTES # (AUTO) 0.6 X10'3 (0-0.9); MONOCYTES % (AUTO) 8.2 % (2-12); NEUTROPHILS # (AUTO) 5.3 X10'3 (1.8-7.7); NEUTROPHILS % (AUTO) 68.6 % (42-75); PLATELET COUNT 245 X10'3 (140-440); RED BLOOD COUNT 4.04 X10'6 (4.70-6.10); RED CELL DISTRIBUTION WIDTH 19.3 % (11.5-14.5); WHITE BLOOD COUNT 7.8 X10'3 (4.5-11.0)
[2023-07-03 08:55] LABS: ANION GAP 11 (8-16); BLOOD UREA NITROGEN 23 MG/DL (7-18); CHLORIDE 104 MMOL/L (99-107); GLUCOSE 99 MG/DL (70-104); SODIUM 139 MMOL/L (135-145)
[2023-07-03 08:56] LABS: ALANINE AMINOTRANSFERASE 23 U/L (12-78); ALBUMIN 2.6 G/DL (3.4-5.0); ALBUMIN/GLOBULIN RATIO 0.5 (1.1-1.5); ALKALINE PHOSPHATASE 60 IU/L (46-116); ASPARTATE AMINO TRANSFERASE 11 U/L (10-37); BILIRUBIN,TOTAL 0.3 MG/DL (0.1-1.0); BUN/CREATININE RATIO 57.5 (10.0-20.0); CALCIUM 9.1 MG/DL (8.5-10.1); TOTAL PROTEIN 7.4 G/DL (6.4-8.2); eCRCL 98 ML/MIN; eGFR > 90 ML/MIN
[2023-07-03 10:00] VITALS: BP 85/61; PULSE 62; RESP 16; TEMP 97.6; O2SAT 100
[2023-07-03 10:59] VITALS: PULSE 102; RESP 18; O2SAT 98
== END 2023-07-03 10:30 | disposition home health service (06) | DRG 871 ==
LOC: ER 16:38 → ED HOLD 23:48 → ORTHO 4S 06-06 14:45
PROVIDERS: ADMIT Internal Medicine; ATTEND Family Medicine
PROC: 0W9B30Z Drainage of Left Pleural Cavity with Drainage Device, Percutaneous Approach (ICD-10-PCS; principal; 2023-06-07)
DX: A41.89 Other specified sepsis (principal); E43 Unspecified severe protein-calorie malnutrition; J69.0 Pneumonitis due to inhalation of food and vomit; J86.0 Pyothorax with fistula; Z68.1 Body mass index [BMI] 19.9 or less, adult; Q89.8 Other specified congenital malformations; E87.1 Hypo-osmolality and hyponatremia; E87.0 Hyperosmolality and hypernatremia; R65.20 Severe sepsis without septic shock; D75.839 Thrombocytosis, unspecified; D64.9 Anemia, unspecified; H54.8 Legal blindness, as defined in USA; Z20.822 Contact with and (suspected) exposure to COVID-19; F71 Moderate intellectual disabilities; K22.0 Achalasia of cardia; K22.2 Esophageal obstruction; G80.9 Cerebral palsy, unspecified; M41.9 Scoliosis, unspecified; Z93.1 Gastrostomy status; Z74.01 Bed confinement status; Z88.2 Allergy status to sulfonamides; Z79.899 Other long term (current) drug therapy
CPT/HCPCS: 36415; 36600; 70450; 71045; 71250; 74018; 74176; 76700; 80048; 80053; 80202; 82042; 82803; 82945; 82948; 83605; 83615; 83735; 83880; 84100; 84134; 84145; 84157; 85007; 85008; 85018; 85025; 87040; 87070; 87075; 87081; 87102; 87634; 87811; 88108; 88305; 88312; 89051; 93005; 94640; 94760; 97116; 97161; 97530; 99285; A4615; A6209; A6212; A6213; A6224; A6449; A7048; C1758; C9113; G0378; J0456; J0696; J1644; J2060; J2270; J2405; J2543; J3370; J3490; J7030; J7040; J7050; J7120; Q0177

== ENCOUNTER 2023-08-25 11:56 | Emergency (ER) | payer MEDICARE, MEDICAID ==
[~2023-08-25] VITALS: Ht 167.6 cm; Wt 52.3 kg
[~2023-08-25 11:56] MED LIST changes: -ACET160S GT; +ACET325S14 GT; -CARB15DR91 EACH EAR; -CHOL100010 GT; -CHOL2000 GT; -CHOL400T32 PO; -CIPR7.5D OT; -CYAN10006 IM; -CYAN100061 IM; +DEXL30CA3 GT; +FAMO20TA8 GT; +FER300L GT; -FERR325T28 GT; -FERR325T39 GT; +FLUO40CA10 GT; -HYDR-3686 PO; -HYDR-4383 GT; +HYDR50TA65 GT; -IMODIUM A-D GT; -KETO15CR2 TP; +L.AC300C GT; +LOPE1LIQ54 GT; -LORA1TAB GT; -LUBRIDERM LOTION; -LUTE6CAP GT; -LUTEIN GT; +MELA3TAB39 GT; -METAMUCIL POWDER GT; +OLAN10TA21 GT; +OLAN5TAB29 GT; -OMEP20CA4 GT; -POLY17PO10 PO; -PROBIOTIC GT; -RANI-327 GT; -RANI150T8 GT; +RISP0.5T74 GT; -RISP1TAB47 GT; -SIMETHICONE GT; -VITAMIN C GT; -VITC500T GT; -ZINC OXIDE TOP; +[UNRECOGNIZED DRUG - CODE] GT
[2023-08-25 12:04] VITALS: BP 96/71; PULSE 89; RESP 18; TEMP 97.8; O2SAT 98
== END 2023-08-25 12:32 | disposition home or self-care (01) ==
LOC: ER 11:56
DX: S09.90XA Unspecified injury of head, initial encounter (principal); G80.9 Cerebral palsy, unspecified; Z88.2 Allergy status to sulfonamides; Z91.018 Allergy to other foods; W19.XXXA Unspecified fall, initial encounter; Y93.89 Activity, other specified; Y92.89 Other specified places as the place of occurrence of the external cause; Y99.8 Other external cause status
CPT/HCPCS: 99284